=== PATIENT | female | born 1985 | race Caucasian/White ===

== ENCOUNTER 2017-08-19 08:19 | Emergency (ER) | payer SELFPAY ==
[~2017-08-19 08:19] MED LIST: CEPH500 PO; CEPH500C3 PO
[2017-08-19 08:21] VITALS: BP 165/84; PULSE 112; RESP 14; TEMP 98.4; O2SAT 99
[2017-08-19] MEDS ORDERED: TETANUS/DIPHTHERIA TOXOID ADULT 0.5 ML VIAL IM ONE (08:45)
[2017-08-19] MEDS ORDERED: SODIUM CHLOR 0.9% 1000 ML INJ 1,000 ML IV ONE (08:45)
[2017-08-19] MEDS ORDERED: KETOROLAC TROMETHAMINE 30 MG/ML (IVP) VIAL IVP ONE (08:45)
[2017-08-19] MEDS ORDERED: CLINDAMYCIN 600 MG/NS PREMIX 50 ML IV ONE (08:45)
[2017-08-19] MEDS ORDERED: CLINDAMYCIN INJ 600 MG in SODIUM CHLORIDE 0.9% INJ 100 ML IV ONE (08:45)
--- NOTE | 2017-08-19 08:48 | PD ---
HPI Chief Complaint: Skin Problem Time Seen by Provider: 08:28 Travel History International Travel<30 days: No Contact w/Intl Traveler<30days: No Traveled to known affect area: No History of Present Illness HPI The patient is a 31-year-old female who presents to the emergency department for swelling to the right arm with an abscess which is self draining. The patient does have a history of previous abscess, does have a history of IV drug abuse. The patient last injected the right forearm 1 week ago, now complains of a draining abscess over the volar aspect of the right forearm with significant swelling of the right forearm. She does complain of pain that is worse with movement, denies any numbness or tingling. She denies any fever, chills, or sweats. She denies any history of immunocompromising diseases or previous history of endocarditis or septic emboli. The symptoms are moderate, exacerbated after using IV drugs in the right forearm. She is right-hand dominant. Symptoms are moderate without any alleviating factors. The patient does not have a primary physician. PFSH Past Medical History Diminished Hearing: No Respiratory: Yes (PNUEMONIA) Immunizations Current: Yes ?: LMP: 06/12/18 : 0 Past Surgical History Tonsillectomy: Yes Social History Alcohol Use: Yes (OCCAISIIONAL) Tobacco Use: No Substance Use: Yes (IV DRUG USE DILAUDID) Allergies-Medications (Allergen,Severity, Reaction): Coded Allergies: cat dander (Unverified Allergy, Intermediate, Hives, 03/14/17) house dust (Unverified Allergy, Mild, Sneezing, 03/14/17) animal dander (Unverified Allergy, Unknown, UNKNOWN, 03/14/17) Reported Meds & Prescriptions Reported Meds & Active Scripts Active Keflex (Cephalexin Monohydrate) 500 Mg Cap 500 Mg PO Q6 Reported Keflex 500 mg Cap (Cephalexin Monohydrate) 500 Mg Cap 500 Mg PO Q6 Review of Systems Except as stated in HPI: all other systems reviewed are Neg General / Constitutional: No: Fever Cardiovascular: No: Chest Pain or Discomfort Respiratory: No: Shortness of Breath Gastrointestinal: No: Nausea, Vomiting, Abdominal Pain Musculoskeletal: Positive: Edema, Pain Neurologic: No: Paresthesia, Sensory Disturbance Psychiatric: Positive: Substance Abuse Physical Exam Narrative GENERAL: Awake, alert, pleasant 31-year-old female who appears her stated age and is in no acute respiratory distress. SKIN: Focused skin assessment warm/dry. HEAD: Atraumatic. Normocephalic. EYES: Pupils equal and round. No scleral icterus. No injection or drainage. ENT: No nasal bleeding or discharge. Mucous membranes pink and moist. NECK: Trachea midline. No JVD. CARDIOVASCULAR: Regular, tachycardic with a heart rate of 110. RESPIRATORY: No accessory muscle use. Clear to auscultation. Breath sounds equal bilaterally. GASTROINTESTINAL: Abdomen soft, non-tender, nondistended. MUSCULOSKELETAL: The right forearm is edematous and erythematous with calor when compared to left upper extremity. Positive right radial pulse. Large open draining wound of the volar aspect of mid right forearm. The wound measures approximately 5 cm x 2.5 cm, is draining purulent drainage. Erythema is noted from the volar aspect of the right wrist to the antecubital fossa. No significant right upper troponin lymphadenopathy or axillary lymphadenopathy noted. NEUROLOGICAL: Awake and alert. No obvious cranial nerve deficits. Motor grossly within normal limits. Normal speech. PSYCHIATRIC: Appropriate mood and affect; insight and judgment normal. Data Data Last Documented VS Vital Signs Date Time Temp Pulse Resp B/P (MAP) Pulse Ox O2 Delivery O2 Flow Rate FiO2 08/19/17 10:09 158/69 (98) 08/19/17 08:21 98.4 112 14 99 Orders Orders Complete Blood Count With Diff (08/19/17 08:38) Blood Culture (08/19/17 08:38) Wound Culture And Gram Stain (08/19/17 08:38) Iv Access Insert/Monitor (08/19/17 08:38) Ketorolac Inj (Toradol Inj) (08/19/17 08:45) Tetanus/Diphtheria Tox Adult (Tetanus/Di (08/19/17 08:45) Comprehensive Metabolic Panel (08/19/17 08:38) Lactic Acid (08/19/17 08:38) Sodium Chlor 0.9% 1000 Ml Inj (Ns 1000 M (08/19/17 08:45) Clindamycin 600 Mg/Ns Premix (Cleocin 60 (08/19/17 08:45) Labs Laboratory Tests Test 08/19/17 08:50 White Blood Count 9.1 TH/MM3 Red Blood Count 4.77 MIL/MM3 Hemoglobin 12.0 GM/DL Hematocrit 35.9 % Mean Corpuscular Volume 75.3 FL Mean Corpuscular Hemoglobin 25.1 PG Mean Corpuscular Hemoglobin Concent 33.4 % Red Cell Distribution Width 13.2 % Platelet Count 302 TH/MM3 Mean Platelet Volume 7.9 FL Neutrophils (%) (Auto) 73.8 % Lymphocytes (%) (Auto) 20.1 % Monocytes (%) (Auto) 5.6 % Eosinophils (%) (Auto) 0.2 % Basophils (%) (Auto) 0.3 % Neutrophils # (Auto) 6.8 TH/MM3 Lymphocytes # (Auto) 1.8 TH/MM3 Monocytes # (Auto) 0.5 TH/MM3 Eosinophils # (Auto) 0.0 TH/MM3 Basophils # (Auto) 0.0 TH/MM3 CBC Comment AUTO DIFF Differential Comment AUTO DIFF CONFIRMED Blood Urea Nitrogen 7 MG/DL Creatinine 0.71 MG/DL Random Glucose 108 MG/DL Total Protein 8.8 GM/DL Albumin 3.1 GM/DL Calcium Level 9.1 MG/DL Alkaline Phosphatase 96 U/L Aspartate Amino Transf (AST/SGOT) 22 U/L Alanine Aminotransferase (ALT/SGPT) 13 U/L Total Bilirubin 2.2 MG/DL Sodium Level 131 MEQ/L Potassium Level 4.5 MEQ/L Chloride Level 98 MEQ/L Carbon Dioxide Level 25.2 MEQ/L Anion Gap 8 MEQ/L Estimat Glomerular Filtration Rate 97 ML/MIN Lactic Acid Level 0.7 mmol/L MDM Medical Decision Making Medical Screen Exam Complete: Yes Emergency Medical Condition: Yes Medical Record Reviewed: Yes Interpretation(s) Laboratory Tests Test 08/19/17 08:50 White Blood Count 9.1 TH/MM3 Red Blood Count 4.77 MIL/MM3 Hemoglobin 12.0 GM/DL Hematocrit 35.9 % Mean Corpuscular Volume 75.3 FL Mean Corpuscular Hemoglobin 25.1 PG Mean Corpuscular Hemoglobin Concent 33.4 % Red Cell Distribution Width 13.2 % Platelet Count 302 TH/MM3 Mean Platelet Volume 7.9 FL Neutrophils (%) (Auto) 73.8 % Lymphocytes (%) (Auto) 20.1 % Monocytes (%) (Auto) 5.6 % Eosinophils (%) (Auto) 0.2 % Basophils (%) (Auto) 0.3 % Neutrophils # (Auto) 6.8 TH/MM3 Lymphocytes # (Auto) 1.8 TH/MM3 Monocytes # (Auto) 0.5 TH/MM3 Eosinophils # (Auto) 0.0 TH/MM3 Basophils # (Auto) 0.0 TH/MM3 CBC Comment AUTO DIFF Differential Comment AUTO DIFF CONFIRMED Blood Urea Nitrogen 7 MG/DL Creatinine 0.71 MG/DL Random Glucose 108 MG/DL Total Protein 8.8 GM/DL Albumin 3.1 GM/DL Calcium Level 9.1 MG/DL Alkaline Phosphatase 96 U/L Aspartate Amino Transf (AST/SGOT) 22 U/L Alanine Aminotransferase (ALT/SGPT) 13 U/L Total Bilirubin 2.2 MG/DL Sodium Level 131 MEQ/L Potassium Level 4.5 MEQ/L Chloride Level 98 MEQ/L Carbon Dioxide Level 25.2 MEQ/L Anion Gap 8 MEQ/L Estimat Glomerular Filtration Rate 97 ML/MIN Lactic Acid Level 0.7 mmol/L Differential Diagnosis Differential diagnosis includes IV drug abuse, abscess, infected wound, cellulitis, sepsis, DrGaviota mueller, septicemia, endocarditis. Narrative Course IV was established, labs are drawn and sent, and the patient was placed on cardiac telemetry monitoring and continuous pulse oximetry monitoring. Blood culture, lactic acid, and wound culture were sent to lab. The patient was administered clindamycin 600 mg intravenously, Toradol 30 mg intravenously, and 1 L of IV fluids. The patient's white count is normal. Lactic acid 0.7. The patient is advised to return in 48 hours for reevaluation of blood cultures, culture results, and to evaluate if the erythema and swelling has improved. The arm was marked with a surgical marking pen. I will write the patient pain medication, her mother is at bedside, will dispense the pain medications to the patient so there is no chance of abuse. Diagnosis Primary Impression: Abscess of right forearm Patient Instructions: General Instructions Additional Instructions: Medications as directed. Return in 48-72 hours for reevaluation of wound. Return sooner symptoms worsen or progress. Elevate, apply warm compresses abscess. Med/Other Pt SpecificInfo: Prescription(s) given Scripts Hydrocodone-Acetaminophen ([place]) 5 Mg-325 Mg Tab 1 TAB PO Q6H Y for PAIN, #15 TAB 0 Refills Prov: Curly Robertson MD 08/19/17 Clindamycin (Cleocin) 150 Mg Cap 150 MG PO Q6H for Infection for 10 Days, #40 CAP 0 Refills Prov: Curly Robertson MD 08/19/17 Sulfamethoxazole-Trimethoprim (Bactrim DS) 800-160 Mg Tab 1 TAB PO BID for Infection, #20 TAB 0 Refills Prov: Curly Robertson MD 08/19/17 Disposition: 01 DISCHARGE HOME Condition: Stable Curly Robertson MD Aug 19, 2017 08:48
[2017-08-19 09:34] LABS: AUTOMATED NEUTROPHIL # 6.8 TH/MM3 (1.8-7.7); BASOPHIL % 0.3 % (0.0-2.0); EOSINOPHIL % 0.2 % (0.0-4.0); HEMATOCRIT 35.9 % (35.0-46.0); LYMPH % 20.1 % (9.0-44.0); LYMPHOCYTE # 1.8 TH/MM3 (1.0-4.8); MEAN CELL VOLUME 75.3 FL (80.0-100.0); MEAN CORPUSCULAR HEMOGLOBIN 25.1 PG (27.0-34.0); MEAN CORPUSCULAR HGB CONC 33.4 % (32.0-36.0); MEAN PLATELET VOLUME 7.9 FL (7.0-11.0); MONO % 5.6 % (0.0-8.0); MONOCYTE # 0.5 TH/MM3 (0-0.9); NEUT % 73.8 % (16.0-70.0); PLATELET COUNT 302 TH/MM3 (150-450); RED BLOOD COUNT 4.77 MIL/MM3 (4.00-5.30); RED CELL DISTRIBUTION WIDTH 13.2 % (11.6-17.2); WHITE BLOOD COUNT 9.1 TH/MM3 (4.0-11.0)
[2017-08-19 09:52] LABS: ALKALINE PHOSPHATASE 96 U/L (45-117); TOTAL BILIRUBIN ADULT 2.2 MG/DL (0.2-1.0); TOTAL PROTEIN 8.8 GM/DL (6.4-8.2)
[2017-08-19 09:53] LABS: ALBUMIN 3.1 GM/DL (3.4-5.0); ALT (GPT) 13 U/L (10-53); AST (GOT) 22 U/L (15-37); BICARBONATE 25.2 MEQ/L (21.0-32.0); BLOOD UREA NITROGEN 7 MG/DL (7-18); CALCIUM 9.1 MG/DL (8.5-10.1); CHLORIDE 98 MEQ/L (98-107); CREATININE 0.71 MG/DL (0.50-1.00); GLOMERULAR FILTRATION RATE 97 ML/MIN (>89); GLUCOSE,RANDOM 108 MG/DL (74-106); SODIUM (NA) 131 MEQ/L (136-145)
[2017-08-19 10:09] VITALS: BP 158/69
[2017-08-19] MEDS ORDERED: CLIN150 PO (10:27)
[2017-08-19] MEDS ORDERED: BACT800T5 PO (10:27)
[2017-08-19] MEDS ORDERED: NORC5TAB PO (10:27)
[2017-08-19 11:24] VITALS: BP 143/70
== END 2017-08-19 11:25 | disposition home or self-care (01) ==
LOC: NEPC 08:19
DX: L02.413 Cutaneous abscess of right upper limb (principal); B96.89 Other specified bacterial agents as the cause of diseases classified elsewhere; F11.10 Opioid abuse, uncomplicated
CPT/HCPCS: 80053; 83605; 85025; 87040; 87070; 87077; 87186; 90471; 90714; 96365; 96375; 99284; J1885; J7030; 87205

== ENCOUNTER 2017-08-21 23:24 | Emergency (ER) | payer SELFPAY | END 2017-08-22 01:29 | disposition left against medical advice (07) | LOC: NED 23:24 | DX: Z03.89 Encounter for observation for other suspected diseases and conditions ruled out (principal) | CPT/HCPCS: 99281 ==

== ENCOUNTER 2017-08-23 17:29 | Inpatient (IN) | payer SELFPAY ==
[~2017-08-23] VITALS: Ht 165.1 cm; Wt 98.1 kg
[~2017-08-23 17:29] MED LIST changes: +BACT800T5 PO; +CLIN150 PO; +NORC5TAB PO
[2017-08-23 17:33] VITALS: BP 114/75; PULSE 112; RESP 14; TEMP 98.9; O2SAT 99
--- NOTE | 2017-08-23 18:06 | PD ---
HPI Chief Complaint: Skin Problem Time Seen by Provider: 18:00 Travel History International Travel<30 days: No Contact w/Intl Traveler<30days: No Traveled to known affect area: No History of Present Illness HPI The patient is a 31-year-old female who presents to the emergency department for pain and swelling of the right upper extremity. The patient was seen in the emergency department approximately 4 days ago for an abscess to the right forearm after using IV drugs. The patient states the arm was marked with a surgical marking pen at that time and the patient was placed on clindamycin and Bactrim. The patient states the redness around that abscess improved, however, she now has redness surrounding the elbow and right humerus. She does state the elbow is erythematous, warm to touch, and the redness has spread proximal to the right humerus. The patient states she had a fever 102 nights ago, however, has no fever today. She does have a history of IV drug abuse, but has not used in the last several days. Symptoms are moderate, possibly exacerbated by recent infection to the right forearm, and no current alleviating factors. She does state the abscess on the right forearm and redness around that area has improved, however, the right elbow and right humerus area has worsened. The patient is right-hand dominant PFSH Past Medical History Diminished Hearing: No Hepatitis: Yes (C) Musculoskeletal: Yes (tendoitis knees, herniated disk in back) Respiratory: Yes (PNUEMONIA) Immunizations Current: Yes ?: Not LMP: 08/22/2017 : 0 Past Surgical History Tonsillectomy: Yes Social History Alcohol Use: Yes Tobacco Use: No Substance Use: Yes (IV DRUG USE DILAUDID) Allergies-Medications (Allergen,Severity, Reaction): Coded Allergies: cat dander (Unverified Allergy, Intermediate, Hives, 08/22/17) house dust (Unverified Allergy, Mild, Sneezing, 08/22/17) animal dander (Unverified Allergy, Unknown, UNKNOWN, 08/22/17) Reported Meds & Prescriptions Reported Meds & Active Scripts Active [place] (Hydrocodone-Acetaminophen) 5 Mg-325 Mg Tab 1 Tab PO Q6H PRN Cleocin (Clindamycin HCl) 150 Mg Cap 150 Mg PO Q6H 10 Days Bactrim DS (Sulfamethoxazole-Trimethoprim) 800-160 Mg Tab 1 Tab PO BID Keflex (Cephalexin Monohydrate) 500 Mg Cap 500 Mg PO Q6 Reported Keflex 500 mg Cap (Cephalexin Monohydrate) 500 Mg Cap 500 Mg PO Q6 Review of Systems Except as stated in HPI: all other systems reviewed are Neg General / Constitutional: Positive: Fever (fever 102 nights ago) Cardiovascular: No: Chest Pain or Discomfort Respiratory: No: Shortness of Breath Gastrointestinal: No: Nausea, Vomiting, Abdominal Pain Musculoskeletal: Positive: Edema, Pain Skin: Positive Other (as noted in the history of present illness) Psychiatric: Positive: Substance Abuse (history of IV drug abuse) Physical Exam Narrative GENERAL: Awake, alert, pleasant 31-year-old female who appears her stated age and is in no acute respiratory distress. SKIN: Focused skin assessment warm/dry. Tract cox noted on the upper extremities bilaterally. HEAD: Atraumatic. Normocephalic. EYES: Pupils equal and round. No scleral icterus. No injection or drainage. ENT: No nasal bleeding or discharge. Mucous membranes pink and moist. NECK: Trachea midline. No JVD. CARDIOVASCULAR: Regular, tachycardic with a heart rate of 105. RESPIRATORY: No accessory muscle use. Clear to auscultation. Breath sounds equal bilaterally. GASTROINTESTINAL: Abdomen soft, non-tender, nondistended. Hepatic and splenic margins not palpable. MUSCULOSKELETAL: The right upper extremity does have an open area over the volar aspect of the right forearm which appears to be healing with no surrounding erythema. However, the patient now has an area of bright erythema over the ulnar aspect of the left elbow with erythema spreading up to the right axilla. The area is tender to palpation. She is able flex and extend the elbow as well as supinate and pronate, no drainage. Positive right radial pulse. NEUROLOGICAL: Awake and alert. No obvious cranial nerve deficits. Motor grossly within normal limits. Normal speech. PSYCHIATRIC: Appropriate mood and affect; insight and judgment normal. Data Data Last Documented VS Vital Signs Date Time Temp Pulse Resp B/P (MAP) Pulse Ox O2 Delivery O2 Flow Rate FiO2 08/23/17 17:33 98.9 112 14 114/75 (88) 99 Orders Orders Blood Culture (08/23/17 18:01) Complete Blood Count With Diff (08/23/17 18:01) Comprehensive Metabolic Panel (08/23/17 18:01) Lactic Acid (08/23/17 18:01) Ceftriaxone Inj (Rocephin Inj) (08/23/17 18:15) Sodium Chlor 0.9% 1000 Ml Inj (Ns 1000 M (08/23/17 18:15) Us Arm Venous Doppler (08/23/17 ) Admit Order (Ed Use Only) (08/23/17 18:33) MDM Medical Decision Making Medical Screen Exam Complete: Yes Emergency Medical Condition: Yes Medical Record Reviewed: Yes Differential Diagnosis Differential diagnosis includes cellulitis, infected wound, abscess, DVT, thrombophlebitis, failed outpatient therapy. Narrative Course IV was established, labs are drawn and sent, and the patient was placed on cardiac telemetry monitoring and continuous pulse oximetry monitoring. I evaluated the patient's right forearm, and has significantly improved, however, now the patient has erythema around the right elbow with erythema extending up into the right axilla. There is calor over the affected area. She is able flex and extend the elbow as well as supinate and pronate, I do not believe this is a septic joint. I did review the patient's culture, grew Serratia itches resistant to doxycycline but sensitive to all other antibiotics listed. The patient was on Bactrim which it was sensitive to, she has failed outpatient therapy. It is sensitive to Rocephin, therefore, the patient received Rocephin. An ultrasound of the right upper extremity was ordered to rule out thrombophlebitis and or DVT. A call was placed to the on-call medical staff for admission. Sepsis Criteria SIRS Criteria (2 or more): Heart rate over 90 Physician Communication Physician Communication A call was placed to the on-call medical staff for admission. I discussed the patient with Dr. Mondragon who agrees with admission. Diagnosis Primary Impression: Cellulitis of right upper extremity Admitting Information Admitting Physician Requests: Admit Condition: Stable Curly Robertson MD Aug 23, 2017 18:05
[2017-08-23] MEDS ORDERED: SODIUM CHLOR 0.9% 1000 ML INJ 1,000 ML IV ONE (18:15)
[2017-08-23] MEDS ORDERED: cefTRIAXone INJ 1,000 MG in SODIUM CHLORIDE 0.9% INJ 100 ML IV ONE (18:15)
[2017-08-23] MEDS ORDERED: NALOXONE HCL 0.4 MG/ML AMP IV PUSH PRN (18:45)
[2017-08-23] MEDS ORDERED: SODIUM CHLORIDE 0.9% FLUSH 10 ML FLUSH IV FLUSH PRN (18:45)
[2017-08-23] MEDS ORDERED: Vancomycin Consult Pharmacy 1 EA OTHER SCH (18:45)
--- NOTE | 2017-08-23 19:48 | RADRPT ---
EXAM DATE/TIME: 08/23/2017 19:05 [facility] COMPARISON: No previous studies available for comparison. INDICATIONS : Right arm swelling. MEDICAL HISTORY : Hepatitis C. Pneumonia. IV drug use. SURGICAL HISTORY : Tonsillectomy. ENCOUNTER: Initial ACUITY: 4 - 6 days PAIN SCORE: 3/10 LOCATION: Right arm. FINDINGS: Examination positive for occlusive thrombus in the proximal to distal brachial vein. Subclavian, axil barrie, basilic and cephalic vein are patent. CONCLUSION: 1. Positive for occlusive deep venous thrombosis in the brachial vein on the right. Chin Greco MD on August 23, 2017 at 19:46 Board Certified Radiologist. This report was verified electronically.
--- NOTE | 2017-08-23 20:23 | HHI.HP ---
[facility] No Primary Care Physician Admission Diagnosis cellulitis/infected wound right forearm failed outpatient therapy Diagnoses: Travel History International Travel<30 Days: No Contact w/Intl Traveler <30 Da: No Traveled to Known Affected Are: No History of Present Illness 31-year-old female with past medical history significant for IV drug abuse presents to the emergency department for evaluation of right upper extremity cellulitis. The patient was seen in the emergency department on 08/19/17 for evaluation of a right forearm abscess which was self draining. She also had a developing cellulitis surrounding the right forearm. Wound cultures were taken and the patient was discharged to home with Bactrim and clindamycin. Wound culture positive for Serratia, sensitive to Bactrim. Despite compliance with her antibiotics the patient's left elbow cellulitis has spread almost to the axillary region. The area is warm to the touch with possible fluctuance. The patient is able to fully move her arm with minimal discomfort. She denies fever /chills. Review of Systems Denies fever or chills Denies blurry vision, otorrhea, rhinorrhea Denies sore throat and cough No chest pain, palpitations No shortness of breath or wheezing No abdominal pain Denies constipation/diarrhea/nausea/vomiting Denies muscle pain Denies focal weakness No rashes Past Family Social History Past Medical History IV drug abuse Hepatitis C Scoliosis Multiple bulging disks Past Surgical History Tonsillectomy Reported Medications Reported Meds & Active Scripts Active [place] (Hydrocodone-Acetaminophen) 5 Mg-325 Mg Tab 1 Tab PO Q6H PRN Cleocin (Clindamycin HCl) 150 Mg Cap 150 Mg PO Q6H 10 Days Bactrim DS (Sulfamethoxazole-Trimethoprim) 800-160 Mg Tab 1 Tab PO BID Keflex (Cephalexin Monohydrate) 500 Mg Cap 500 Mg PO Q6 Reported Keflex 500 mg Cap (Cephalexin Monohydrate) 500 Mg Cap 500 Mg PO Q6 Allergies: Coded Allergies: cat dander (Unverified Allergy, Intermediate, Hives, 08/22/17) house dust (Unverified Allergy, Mild, Sneezing, 08/22/17) animal dander (Unverified Allergy, Unknown, UNKNOWN, 08/22/17) Family History Father with CAD Social History Patient reports IV drug abuse with last injection Monday. She uses Dilaudid. She also reports she takes Suboxone orally every day. Denies alcohol and tobacco. Physical Exam Vital Signs Vital Signs Date Time Temp Pulse Resp B/P (MAP) Pulse Ox O2 Delivery O2 Flow Rate FiO2 08/23/17 17:33 98.9 112 14 114/75 (88) 99 Physical Exam GENERAL: female sitting up in bed SKIN: Right upper extremity with an open area that measures approximately 3 x 3 cm healing without surrounding erythema. Erythema and edema surrounding left elbow extending towards the axillary region on the posterior aspect of the right upper extremity. Possible fluctuance. HEAD: Atraumatic. Normocephalic. No temporal or scalp tenderness. EYES: Pupils equal round and reactive. Extraocular motions intact. No scleral icterus. No injection or drainage. ENT: Nose without bleeding, purulent drainage or septal hematoma. Throat without erythema, tonsillar hypertrophy or exudate. Uvula midline. Airway patent. NECK: Trachea midline. No JVD or lymphadenopathy. Supple, nontender, no meningeal signs. CARDIOVASCULAR: Regular rate and rhythm without murmurs, gallops, or rubs. RESPIRATORY: Clear to auscultation. Breath sounds equal bilaterally. No wheezes , rales, or rhonchi. GASTROINTESTINAL: Abdomen soft, non-tender, nondistended. No hepato-splenomegaly , or palpable masses. No guarding. MUSCULOSKELETAL: Extremities without clubbing, cyanosis, or edema. No joint tenderness, effusion, or edema noted. No calf tenderness. NEUROLOGICAL: Awake and alert. Cranial nerves II through XII intact. Motor and sensory grossly within normal limits. Five out of 5 muscle strength in all muscle groups. Normal speech. Laboratory Laboratory Tests Test 08/23/17 19:05 Date/Time Source Procedure Growth Status 08/23/17 19:05 Blood Peripheral Aerobic Blood Culture Pending Received 08/23/17 19:05 Blood Peripheral Anaerobic Blood Culture Pending Received Caprini VTE Risk Assessment Caprini VTE Risk Assessment: No/Low Risk (score <= 1) Caprini Risk Assessment Model Point Value = 1 Point Value = 2 Point Value = 3 Point Value = 5 Age 41-60 Minor surgery BMI > 25 kg/m2 Swollen legs Varicose veins or History of unexplained or recurrent spontaneous Oral contraceptives or hormone replacement Sepsis (< 1 month) Serious lung disease, including pneumonia (< 1 month) Abnormal pulmonary function Acute myocardial infarction Congestive heart failure (< 1 month) History of inflammatory bowel disease Medical patient at bed rest Age 61-74 Arthroscopic surgery Major open surgery (> 45 min) Laparoscopic surgery (> 45 min) Malignancy Confined to bed (> 72 hours) Immobilizing plaster cast Central venous access Age >= 75 History of VTE Family history of VTE Factor V Leiden Prothrombin [id number] Lupus anticoagulant Anticardiolipin antibodies Elevated serum homocysteine Heparin-induced thrombocytopenia Other congenital or acquired thrombophilia Stroke (< 1 month) Elective arthroplasty Hip, pelvis, or leg fracture Acute spinal cord injury (< 1 month) Prophylaxis Regimen Total Risk Factor Score Risk Level Prophylaxis Regimen 0-1 Low Early ambulation 2 Moderate Order ONE of the following: *Sequential Compression Device (SCD) *Heparin 5000 units SQ BID 3-4 Higher Order ONE of the following medications: *Heparin 5000 units SQ TID *Enoxaparin/Lovenox 40 mg SQ daily (WT < 150 kg, CrCl > 30 mL/min) *Enoxaparin/Lovenox 30 mg SQ daily (WT < 150 kg, CrCl > 10-29 mL/min) *Enoxaparin/Lovenox 30 mg SQ BID (WT < 150 kg, CrCl > 30 mL/min) AND/OR *Sequential Compression Device (SCD) 5 or more Highest Order ONE of the following medications: *Heparin 5000 units SQ TID (Preferred with Epidurals) *Enoxaparin/Lovenox 40 mg SQ daily (WT < 150 kg, CrCl > 30 mL/min) *Enoxaparin/Lovenox 30 mg SQ daily (WT < 150 kg, CrCl > 10-29 mL/min) *Enoxaparin/Lovenox 30 mg SQ BID (WT < 150 kg, CrCl > 30 mL/min) AND *Sequential Compression Device (SCD) Assessment and Plan Assessment and Plan Assessment/plan: 1. Right upper extremity cellulitis, failed outpatient treatment Wound culture from 08/19 growing Serratia, blood cultures from 120 no growth 4 days Repeat blood cultures pending Vancomycin/Zosyn CBC, lactic acid pending Dilaudid for pain Monitor for signs of sepsis 2. IV drug abuse Cessation counseling provided 3. Hepatitis C Will need outpatient follow-up Physician Certification 2 Midnight Certification Type: Admission for Inpatient Services Order for Inpatient Services The services are ordered in accordance with Medicare regulations or non- Medicare payer requirements, as applicable. In the case of services not specified as inpatient-only, they are appropriately provided as inpatient services in accordance with the 2-midnight benchmark. Estimated LOS (days): 2 2 days is the estimated time the patient will need to remain in the hospital, assuming treatment plan goals are met and no additional complications. Post-Hospital Plan: Not yet determined Christine De La Rosa MD Aug 23, 2017 20:23
[2017-08-23 20:29] LABS: ALT (GPT) 10 U/L (10-53)
[2017-08-23 20:31] LABS: ALKALINE PHOSPHATASE 96 U/L (45-117); AST (GOT) 26 U/L (15-37); BICARBONATE 24.6 MEQ/L (21.0-32.0); BLOOD UREA NITROGEN 7 MG/DL (7-18); CALCIUM 9.1 MG/DL (8.5-10.1); CHLORIDE 96 MEQ/L (98-107); CREATININE 1.04 MG/DL (0.50-1.00); GLOMERULAR FILTRATION RATE 62 ML/MIN (>89); GLUCOSE,RANDOM 81 MG/DL (74-106); SODIUM (NA) 128 MEQ/L (136-145); TOTAL PROTEIN 9.1 GM/DL (6.4-8.2)
[2017-08-23 20:49] VITALS: BP 117/64; PULSE 106; RESP 20; TEMP 99.9; O2SAT 95
[2017-08-23] MEDS: SODIUM CHLORIDE 0.9% FLUSH 10 ML FLUSH IV FLUSH SCH (21:00)
[2017-08-23] MEDS: SODIUM CHLOR 0.9% 1000 ML INJ 1,000 ML IV SCH (22:16)
[2017-08-23] MEDS: PIPERACIL-TAZO 4.5 GM PREMIX 100 ML IV SCH (22:17)
[2017-08-23] MEDS: HYDROmorphone HCL PF 2 MG/ML VIAL IV PUSH PRN (22:21)
--- NOTE | 2017-08-23 23:28 | RADRPT ---
EXAM DATE/TIME: 08/23/2017 22:28 [facility] COMPARISON: No previous studies available for comparison. INDICATIONS : Right arm swelling and pain. MEDICAL HISTORY : Hepatitis C. Pneumonia. IV drug use. SURGICAL HISTORY : Tonsillectomy. ENCOUNTER: Initial ACUITY: 1 week PAIN SCORE: 9/10 LOCATION: Right arm. AREA EVALUATED: Right elbow and posterior arm. FINDINGS: Real-time ultrasound examination was targeted to the soft tissues of the posterior elbow and demonstr ate a large subcutaneous fluid collection which contains multiple septations, measuring 11.1 x 5.5 x 2.4 cm. On color Doppler, there is increased flow in the subcutaneous fat anterior to the fluid mikhail ection and prominent flow in one of the septa. CONCLUSION: Large subcutaneous fluid collection in the posterior elbow. Kaden Jain MD on August 23, 2017 at 23:25 Board Certified Radiologist. This report was verified electronically.
[2017-08-23] MEDS: VANCOMYCIN 1 GM/200 ML PREMIX IV SCH (23:42)
[2017-08-23 23:50] VITALS: BP 110/68; PULSE 70; RESP 18; TEMP 98.6
[2017-08-24] MEDS: PIPERACIL-TAZO 4.5 GM PREMIX 100 ML IV SCH ×4 (04:10→22:51)
[2017-08-24] MEDS: HYDROmorphone HCL PF 2 MG/ML VIAL IV PUSH PRN ×5 (04:13→23:16)
[2017-08-24 04:31] VITALS: BP 102/52; PULSE 95; RESP 18; TEMP 100.3; O2SAT 94
[2017-08-24] MEDS: VANCOMYCIN 1 GM/200 ML PREMIX IV SCH ×3 (05:58→22:51)
[2017-08-24] MEDS: HEPARIN-D5W 25,000 U/250 ML 250 ML IV PRN ×3 (06:00→22:49)
[2017-08-24 08:14] VITALS: BP 115/53; PULSE 80; RESP 18; TEMP 99.7; O2SAT 94
[2017-08-24 08:27] LABS: AUTOMATED NEUTROPHIL # 3.8 TH/MM3 (1.8-7.7); BASOPHIL % 0.5 % (0.0-2.0); EOSINOPHIL % 0.1 % (0.0-4.0); HEMATOCRIT 33.1 % (35.0-46.0); HEMOGLOBIN 10.9 GM/DL (11.6-15.3); LYMPH % 20.3 % (9.0-44.0); LYMPHOCYTE # 1.1 TH/MM3 (1.0-4.8); MEAN CELL VOLUME 73.5 FL (80.0-100.0); MEAN CORPUSCULAR HEMOGLOBIN 24.2 PG (27.0-34.0); MEAN CORPUSCULAR HGB CONC 32.9 % (32.0-36.0); MEAN PLATELET VOLUME 7.2 FL (7.0-11.0); MONOCYTE # 0.5 TH/MM3 (0-0.9); NEUT % 70.1 % (16.0-70.0); PLATELET COUNT 283 TH/MM3 (150-450); RED CELL DISTRIBUTION WIDTH 13.9 % (11.6-17.2); WHITE BLOOD COUNT 5.4 TH/MM3 (4.0-11.0)
[2017-08-24 08:36] LABS: INTERNATIONAL NORMALIZED RATIO 1.1 RATIO; PROTHROMBIN TIME - PATIENT 11.1 SEC (9.8-11.6)
[2017-08-24 08:51] LABS: BICARBONATE 23.8 MEQ/L (21.0-32.0); CALCIUM 8.3 MG/DL (8.5-10.1); CREATININE 0.96 MG/DL (0.50-1.00)
[2017-08-24] MEDS: SODIUM CHLOR 0.9% 1000 ML INJ 1,000 ML IV SCH ×2 (08:58→18:31)
[2017-08-24] MEDS: SODIUM CHLORIDE 0.9% FLUSH 10 ML FLUSH IV FLUSH SCH ×2 (09:00→23:14)
[2017-08-24] MEDS ORDERED: INFLUENZA VIRUS VACCINE (QUADRIVALENT) 0.5 ML SYR IM ONE (10:00)
[2017-08-24] MEDS ORDERED: PNEUMOCOCCAL POLYVALENT INJ 25 MCG/0.5 ML SYR IM ONE (10:00)
--- NOTE | 2017-08-24 10:55 | HHI.PR ---
Subjective Remarks Follow-up right upper extremity cellulitis/abscess. The patient reports that the swelling and pain in the right arm are unchanged. No drainage overnight. Objective Vitals Vital Signs Date Time Temp Pulse Resp B/P (MAP) Pulse Ox O2 Delivery O2 Flow Rate FiO2 08/24/17 08:14 99.7 80 18 115/53 (73) 94 08/24/17 04:45 18 08/24/17 04:31 100.3 95 18 102/52 (69) 94 08/23/17 23:50 98.6 70 18 110/68 (82) 08/23/17 20:49 99.9 106 20 117/64 (81) 95 08/23/17 17:33 98.9 112 14 114/75 (88) 99 I/O 08/23/17 08/23/17 08/23/17 08/24/17 08/24/17 08/24/17 07:00 15:00 23:00 07:00 15:00 23:00 Intake Total 1000 ml 200 ml Balance 1000 ml 200 ml Intake Oral 200 ml IV Total 1000 ml Result Diagram: 08/24/17 0802 08/24/17 0802 Imaging Last Impressions Upper Extremity Ultrasound 08/23/17 0000 Signed Impressions: Service Date/Time: Wednesday, August 23, 2017 22:28 - CONCLUSION: Large subcutaneous fluid collection in the posterior elbow. Kaden Jain MD Objective Remarks General: No acute distress. Heart: Regular rate and rhythm. No murmur. Lungs: Clear to auscultation bilaterally. No wheezes, rales, or rhonchi. Breathing is nonlabored. Abdomen: Soft, nontender, nondistended. Extremities: No lower extremity edema. Psych: Alert and oriented. Skin: There is significant swelling and erythema surrounding the right elbow. The area is tender to palpation. There is fluctuance noted posteriorly. Procedures None Urinary Catheter: No Vascular Central Line Catheter: No A/P Assessment and Plan 1. Right upper extremity cellulitis/abscess: Failed outpatient therapy. Wound culture from 08/19/17 growing Serratia. Cultures are negative so far. Repeat blood cultures are pending. Continue vancomycin, Zosyn. Continue pain control. 2. IV drug abuse: Patient was counseled. 3. Hepatitis C: Follow-up as outpatient. 4. DVT, right upper extremity: Continue heparin drip. Stoverink,Pablo D. MD Aug 24, 2017 10:55
[2017-08-24 11:42] VITALS: BP 103/53; PULSE 80; RESP 20; TEMP 98.3; O2SAT 94
[2017-08-24 16:02] VITALS: BP 104/58; PULSE 83; RESP 20; TEMP 99.7; O2SAT 98
[2017-08-24] MEDS ORDERED: GADODIAMIDE PF 287 MG/ML 20 ML VIAL (for RAD MRI) IV PUSH ONE (17:38)
--- NOTE | 2017-08-24 18:07 | RADRPT ---
EXAM DATE/TIME: 08/24/2017 17:02 [place] COMPARISON: No previous studies available for comparison. INDICATIONS : Abscess. CONTRAST: 22 cc Omniscan (gadodiamide) IV MEDICAL HISTORY : Hepatitis C. IV Drug abuse. SURGICAL HISTORY : Tonsillectomy. Back surgery. ENCOUNTER: Initial ACUITY: 2 day PAIN SCORE: 4/10 LOCATION: Right elbow. TECHNIQUE: Multiplanar, multisequence MRI examination was performed without contrast and after the intravenous a dministration of gadolinium. FINDINGS: Large, heterogeneous and indurated appearing fluid collection is seen in the olecranon bursa, measure s approximately 2.7 cm in maximal thickness, 5.3 cm transverse and 13.9 cm proximal to distal. This m ay be hemorrhagic. An infected olecranon bursitis could appear similar. Deep soft tissues are within normal limits. There is no evidence of osteomyelitis or other acute bony abnormality. CONCLUSION: Large olecranon bursitis. No osteomyelitis. Daniel Light MD on August 24, 2017 at 18:01 Board Certified Radiologist. This report was verified electronically.
[2017-08-24] MEDS ORDERED: PHARMACY ORDERED LAB ONE (20:45)
[2017-08-24 20:49] VITALS: BP 95/54; PULSE 86; RESP 16; TEMP 100.5; O2SAT 97
[2017-08-24 23:33] VITALS: BP 108/66; PULSE 95; RESP 16; TEMP 99.3; O2SAT 98
[2017-08-25] VITALS (8 sets, daily range): BP systolic 93–130; BP diastolic 54–68; PULSE 69–84; RESP 17–18; TEMP 97.3–98.7; O2SAT 93–99
[2017-08-25] MEDS: SODIUM CHLOR 0.9% 1000 ML INJ 1,000 ML IV SCH ×3 (01:00→21:00)
[2017-08-25] MEDS: PIPERACIL-TAZO 4.5 GM PREMIX 100 ML IV SCH (03:24)
[2017-08-25] MEDS: HYDROmorphone HCL PF 2 MG/ML VIAL IV PUSH PRN ×5 (03:25→23:29)
[2017-08-25] MEDS: VANCOMYCIN 1 GM/200 ML PREMIX IV SCH (06:46)
[2017-08-25 07:24] LABS: AUTOMATED NEUTROPHIL # 2.9 TH/MM3 (1.8-7.7); BASOPHIL % 0.3 % (0.0-2.0); EOSINOPHIL % 0.4 % (0.0-4.0); HEMATOCRIT 28.5 % (35.0-46.0); HEMOGLOBIN 9.5 GM/DL (11.6-15.3); LYMPH % 30.4 % (9.0-44.0); LYMPHOCYTE # 1.4 TH/MM3 (1.0-4.8); MEAN CORPUSCULAR HEMOGLOBIN 24.6 PG (27.0-34.0); MEAN CORPUSCULAR HGB CONC 33.3 % (32.0-36.0); MEAN PLATELET VOLUME 7.8 FL (7.0-11.0); MONO % 6.8 % (0.0-8.0); MONOCYTE # 0.3 TH/MM3 (0-0.9); NEUT % 62.1 % (16.0-70.0); PLATELET COUNT 267 TH/MM3 (150-450); RED BLOOD COUNT 3.85 MIL/MM3 (4.00-5.30); RED CELL DISTRIBUTION WIDTH 13.7 % (11.6-17.2); WHITE BLOOD COUNT 4.6 TH/MM3 (4.0-11.0)
[2017-08-25 07:37] LABS: BICARBONATE 25.5 MEQ/L (21.0-32.0); CALCIUM 7.9 MG/DL (8.5-10.1); CREATININE 0.78 MG/DL (0.50-1.00)
--- NOTE | 2017-08-25 08:54 | HHI.PR ---
Subjective Remarks Follow up right elbow infection. Patient scheduled for surgery today. The patient is still reporting pain in the right elbow. No other complaints at this time. Objective Vitals Vital Signs Date Time Temp Pulse Resp B/P (MAP) Pulse Ox O2 Delivery O2 Flow Rate FiO2 08/25/17 07:12 97.3 78 18 105/55 (72) 98 08/25/17 05:29 18 08/25/17 03:11 98.7 82 17 93/54 (67) 99 08/24/17 23:33 99.3 95 16 108/66 (80) 98 08/24/17 20:49 100.5 86 16 95/54 (68) 97 08/24/17 16:02 99.7 83 20 104/58 (73) 98 08/24/17 11:42 98.3 80 20 103/53 (70) 94 I/O 08/24/17 08/24/17 08/24/17 08/25/17 08/25/17 08/25/17 07:00 15:00 23:00 07:00 15:00 23:00 Intake Total 500 ml 1100 ml Balance 500 ml 1100 ml Intake Oral 200 ml IV Total 300 ml 1100 ml Result Diagram: 08/25/17 0630 08/25/17 0630 Imaging Last Impressions Elbow MRI 08/24/17 0000 Signed Impressions: Service Date/Time: July 17:02 - CONCLUSION: Large olecranon bursitis. No osteomyelitis. Daniel Light MD Upper Extremity Ultrasound 08/23/17 0000 Signed Impressions: Service Date/Time: Wednesday, August 23, 2017 22:28 - CONCLUSION: Large subcutaneous fluid collection in the posterior elbow. Kaden Jain MD Objective Remarks General: No acute distress. Heart: Regular rate and rhythm. No murmur. Lungs: Clear to auscultation bilaterally. No wheezes, rales, or rhonchi. Breathing is nonlabored. Abdomen: Soft, nontender, nondistended. Extremities: No lower extremity edema. Psych: Alert and oriented. Skin: There is significant swelling and erythema surrounding the right elbow. The area is tender to palpation. There is fluctuance noted posteriorly. Erythema slightly improved. Procedures None Urinary Catheter: No Vascular Central Line Catheter: No A/P Assessment and Plan 1. Right upper extremity cellulitis/abscess: Failed outpatient therapy. Wound culture from 08/19/17 growing Serratia, sensitive to Rocephin. Blood culture from 08/19/17 is negative. Repeat blood cultures are negative so far. Continue IV antibiotics. Continue pain control. 2. IV drug abuse: Patient was counseled. 3. Hepatitis C: Follow-up as outpatient. 4. DVT, right upper extremity: Continue heparin drip. Will transition to oral anticoagulation following surgery. Pablo Maldonado MD Aug 25, 2017 08:54
[2017-08-25] MEDS: SODIUM CHLORIDE 0.9% FLUSH 10 ML FLUSH IV FLUSH SCH ×2 (09:00→21:00)
[2017-08-25] MEDS: cefTRIAXone INJ 1,000 MG in SODIUM CHLORIDE 0.9% INJ 100 ML IV SCH (11:17)
[2017-08-25] MEDS ORDERED: LIDOCAINE HCL 1% PF 5 ML SYRINGE OTHER ONE (12:00)
[2017-08-25] MEDS ORDERED: ONDANSETRON HCL 4 MG/2 ML VIAL IV ONE (12:00)
[2017-08-25] MEDS ORDERED: PROPOFOL 200 MG/20 ML AMP IV ONE (12:00)
[2017-08-25] MEDS: HEPARIN-D5W 25,000 U/250 ML 250 ML IV PRN (12:33)
--- NOTE | 2017-08-25 13:13 | PD.CONS ---
HPI Service Orthopedic Surgeons Consult Requested By Reason for Consult Right septic bursitis Primary Care Physician No Primary Care Physician Admission Diagnosis cellulitis/infected wound right forearm failed outpatient therapy Diagnoses: Chief Complaint: right arm pain and swelling History of Present Illness 31-year-old female with approximate 1-1.5 week history of right arm pain and swelling. Patient did present to the emergency department last week and was given to oral antibiotics due to a small draining wound on her right forearm. Patient states she was compliant with the medications however over the last week it has increased. She did present to the ED a couple days ago and after a long wait just left home without medical treatment. She presented approximate 1 day ago to the ED with increasing right arm pain and swelling. Patient states she is able to move the elbow without any significant discomfort it is really just can't attach the posterior aspect of her elbow and forearm. She does admit to shooting up time allotted which she was not prescribed. She does admit to IV drug use on a regular basis. She admits to occasional fevers and chills over the last week. Review of Systems Constitutional: COMPLAINS OF: Fever Endocrine: DENIES: Heat/cold intolerance Eyes: DENIES: Blurred vision Ears, nose, mouth, throat: DENIES: Throat pain Respiratory: DENIES: Cough Cardiovascular: DENIES: Chest pain Gastrointestinal: DENIES: Abdominal pain Genitourinary: DENIES: Urinary incontinence Musculoskeletal: COMPLAINS OF: Muscle aches, DENIES: Joint pain Integumentary: COMPLAINS OF: Rash ( Red rash over her abdomen without raised lesions or pruritus) Hematologic/lymphatic: DENIES: Bruising Immunologic/allergic: DENIES: Eczema Neurologic: DENIES: Abnormal gait Psychiatric: DENIES: Anxiety Past Family Social History Past Medical History IV drug abuse Hepatitis C Scoliosis Multiple bulging disks Past Surgical History Tonsillectomy Allergies: Coded Allergies: cat dander (Unverified Allergy, Intermediate, Hives, 08/22/17) house dust (Unverified Allergy, Mild, Sneezing, 08/22/17) animal dander (Unverified Allergy, Unknown, UNKNOWN, 08/22/17) Active Ordered Medications Current Medications Medications (Trade) Dose Ordered Sig/Natalia Route Start Time Stop Time Status Last Admin Sodium Chloride 1,000 ml @ 100 mls/hr Q10H IV 08/23/17 19:00 08/25/17 09:30 (NS Flush) 2 ml UNSCH PRN IV FLUSH 08/23/17 18:45 (NS Flush) 2 ml BID IV FLUSH 08/23/17 21:00 08/24/17 23:14 (Narcan Inj) 0.4 mg UNSCH PRN IV PUSH 08/23/17 18:45 (Dilaudid Pf Inj) 1 mg Q4H PRN IV PUSH 08/23/17 20:15 08/25/17 12:36 Heparin Sodium/ Dextrose 250 ml @ 18 mls/hr TITRATE PRN IV 08/24/17 05:45 08/25/17 12:33 Ceftriaxone Sodium 1000 mg/ Sodium Chloride 100 ml @ 200 mls/hr Q24H IV 08/25/17 10:00 08/25/17 11:17 Reported Meds & Active Scripts Active [place] (Hydrocodone-Acetaminophen) 5 Mg-325 Mg Tab 1 Tab PO Q6H PRN Cleocin (Clindamycin HCl) 150 Mg Cap 150 Mg PO Q6H 10 Days Bactrim DS (Sulfamethoxazole-Trimethoprim) 800-160 Mg Tab 1 Tab PO BID Keflex (Cephalexin Monohydrate) 500 Mg Cap 500 Mg PO Q6 Reported Keflex 500 mg Cap (Cephalexin Monohydrate) 500 Mg Cap 500 Mg PO Q6 Family History Father with CAD Social History Patient reports IV drug abuse with last injection Monday. She uses Dilaudid. She also reports she takes Suboxone orally every day. Denies alcohol and tobacco. Physical Exam Vital Signs Vital Signs Date Time Temp Pulse Resp B/P (MAP) Pulse Ox O2 Delivery O2 Flow Rate FiO2 08/25/17 11:43 98.2 70 18 130/56 (80) 93 08/25/17 07:12 97.3 78 18 105/55 (72) 98 08/25/17 05:29 18 08/25/17 03:11 98.7 82 17 93/54 (67) 99 08/24/17 23:33 99.3 95 16 108/66 (80) 98 08/24/17 20:49 100.5 86 16 95/54 (68) 97 08/24/17 16:02 99.7 83 20 104/58 (73) 98 Physical Exam Patient awake, alert, no acute distress. Normocephalic Pupils equal No JVD Moist mucous membranes Nonlabored respirations Regular rate Soft nontender abdomen. There is a red rash over her abdomen, suspect red man syndrome from vancomycin Right upper extremity: Significant edema and tenderness palpation over the posterior aspect of the elbow and olecranon bursa which extends down to the posterior aspect of the forearm. Erythema slightly proximal to elbow, although patient states diminished since previously. Erythema does extend below elbow down almost to the wrist. Patient has full active range of motion of elbow without discomfort. Neurovascularly intact distally. Radial pulses palpable. Left upper extremity and bilateral lower extremity: No tenderness palpation, no deformities. No evidence of infection. Full active range motion and strength throughout. Neurovascular intact distally. Radial and dorsalis pedis pulses are palpable. Small rash over abdomen, consistent with possible red man syndrome Normal affect Laboratory Laboratory Tests Test 08/24/17 14:03 08/24/17 20:20 08/25/17 06:30 Activated Partial Thromboplast Time 49.7 61.1 65.8 Vancomycin Level Trough 15.9 White Blood Count 4.6 Red Blood Count 3.85 Hemoglobin 9.5 Hematocrit 28.5 Mean Corpuscular Volume 74.0 Mean Corpuscular Hemoglobin 24.6 Mean Corpuscular Hemoglobin Concent 33.3 Red Cell Distribution Width 13.7 Platelet Count 267 Mean Platelet Volume 7.8 Neutrophils (%) (Auto) 62.1 Lymphocytes (%) (Auto) 30.4 Monocytes (%) (Auto) 6.8 Eosinophils (%) (Auto) 0.4 Basophils (%) (Auto) 0.3 Neutrophils # (Auto) 2.9 Lymphocytes # (Auto) 1.4 Monocytes # (Auto) 0.3 Eosinophils # (Auto) 0.0 Basophils # (Auto) 0.0 CBC Comment DIFF FINAL Differential Comment Blood Urea Nitrogen 6 Creatinine 0.78 Random Glucose 150 Calcium Level 7.9 Sodium Level 138 Potassium Level 4.0 Chloride Level 106 Carbon Dioxide Level 25.5 Anion Gap 7 Estimat Glomerular Filtration Rate 87 Date/Time Source Procedure Growth Status 08/23/17 19:05 Blood Peripheral Aerobic Blood Culture - Preliminary NO GROWTH IN 2 DAYS Resulted 08/23/17 19:05 Blood Peripheral Anaerobic Blood Culture - Preliminary NO GROWTH IN 2 DAYS Resulted Result Diagram: 08/25/1730 08/25/1730 Assessment & Plan Assessment and Plan 31-year-old female IV drug user with failed nonoperative treatment of her right arm cellulitis and abscess with large posterior elbow and forearm abscess on imaging I discussed with the patient that given her abscess has worsened rather than improved with nonoperative management with oral antibiotics, I would recommend surgical intervention the form of irrigation and debridement of her right elbow and forearm. Risks of surgery including but not limited to: Persistent infection, neurovascular injury, possible need for further surgery, and other unforeseen consultations were all discussed with the patient. At this time she is consented to the procedure. Patient has been nothing by mouth since midnight. We'll keep nothing by mouth for surgery later today. Postoperative course including the likely placement of a drain postoperatively was discussed with the patient. Patient was counseled on avoiding IV drug use. Genevieve Fowler MD Aug 25, 2017 13:13
[2017-08-25] MEDS ORDERED: HYDROmorphone HCL PF 2 MG/ML VIAL ONE (19:54)
--- NOTE | 2017-08-25 20:38 | HHI.PR ---
cc: Genevieve Fowler MD Immediate Post Op Note Procedure Date: Aug 25, 2017 Pre Op Diagnosis: Deep abscess and olecranon bursitis right elbow and forearm Post Op Diagnosis: same Surgeon: Genevieve Fowler [employer] Personality(s): none Procedure: Irrigation and debridement right elbow olecranon bursitis and deep abscess right forearm Complications: none Specimen(s) removed: Culture sent to lab Estimated blood loss: 150cc Anesthesia: General Drains: [place] IVF Patient to: PACU Patient Condition: Good Date/Time of Procedure: SEE SURGICAL CARE RECORD Genevieve Fowler MD Aug 25, 2017 20:38
--- NOTE | 2017-08-25 20:41 | PD.ORT.PN ---
Subjective Subjective Remarks POD#0 I&D R olecranon septic bursitis and deep abscess Objective Vitals Vital Signs Date Time Temp Pulse Resp B/P (MAP) Pulse Ox O2 Delivery O2 Flow Rate FiO2 08/25/17 17:11 72 08/25/17 15:23 98.3 80 18 118/68 (85) 99 08/25/17 12:14 69 08/25/17 11:43 98.2 70 18 130/56 (80) 93 08/25/17 08:00 69 08/25/17 07:12 97.3 78 18 105/55 (72) 98 08/25/17 05:29 18 08/25/17 03:11 98.7 82 17 93/54 (67) 99 08/24/17 23:33 99.3 95 16 108/66 (80) 98 08/24/17 20:49 100.5 86 16 95/54 (68) 97 I/O 08/24/17 08/24/17 08/24/17 08/25/17 08/25/17 08/25/17 07:00 15:00 23:00 07:00 15:00 23:00 Intake Total 500 ml 1100 ml 1300 ml 250 ml Output Total 150 ml Balance 500 ml 1100 ml 1300 ml 100 ml Intake Oral 200 ml IV Total 300 ml 1100 ml 1300 ml Other 250 ml Output Estimated Blood Loss 150 ml Result Diagram: 08/25/17 0630 08/25/17 0630 Objective Remarks Right upper extremity: MERVIN wrap in place, sonya left in place. BCR Assessment & Plan Assessment and Plan 31-year-old female IV drug user with failed nonoperative treatment of her right arm cellulitis and abscess with large posterior elbow and forearm abscess , POD#0 s/p I&D R olecranon bursitis/deep abscess 1. WBAT RUE. Encourage ROM 2. Start dressing changes POD#2 and remove sonya drain. 3. IV antibiotics per medicine/ID. Intraop culture obtained (although patient had already been started on abx 4. No plan for further orthopedic surgery. Genevieve Fowler MD Aug 25, 2017 20:40
[2017-08-25] MEDS ORDERED: DO NOT ADM ANY ANTICOAGULANT DRUGS PRN (20:44)
[2017-08-25] MEDS ORDERED: SODIUM CHLORIDE 0.9% FLUSH 10 ML FLUSH IV FLUSH PRN (20:45)
[2017-08-25] MEDS ORDERED: Post-op Orders (for Pharmacy) XX ONE (20:45)
[2017-08-25] MEDS ORDERED: MEPERIDINE HCL 25 MG/ML VIAL ONE (20:51)
[2017-08-25] MEDS ORDERED: MORPHINE SULFATE 8 MG/ML INJ ONE (21:28)
[2017-08-25] MEDS ORDERED: *morphine SULFATE 10 MG/ML PERIprocedure ONLY ONE (21:46)
[2017-08-26] MEDS: HYDROmorphone HCL PF 2 MG/ML VIAL IV PUSH PRN ×5 (03:23→21:11)
[2017-08-26 05:07] VITALS: BP 93/49; PULSE 73; RESP 17; TEMP 97.6; O2SAT 95
--- NOTE | 2017-08-26 07:08 | PD.ORT.PN ---
Subjective Subjective Remarks POD 1 s/p I&D right elbow doing well .pain controlled. no complaints at this time Objective Vitals Vital Signs Date Time Temp Pulse Resp B/P (MAP) Pulse Ox O2 Delivery O2 Flow Rate FiO2 08/26/17 05:07 97.6 73 17 93/49 (64) 95 08/25/17 23:00 97.9 84 17 125/66 (85) 96 08/25/17 21:45 77 12 117/70 (86) 96 Nasal Cannula 2 08/25/17 21:30 81 14 122/78 (93) 95 Nasal Cannula 2 08/25/17 21:15 77 12 119/72 (88) 96 Nasal Cannula 2 08/25/17 21:00 82 12 121/80 (94) 96 Nasal Cannula 2 08/25/17 20:45 97.9 92 15 129/86 (100) 96 Nasal Cannula 2 08/25/17 17:11 72 08/25/17 15:23 98.3 80 18 118/68 (85) 99 08/25/17 12:14 69 08/25/17 11:43 98.2 70 18 130/56 (80) 93 08/25/17 08:00 69 08/25/17 07:12 97.3 78 18 105/55 (72) 98 I/O 08/25/17 08/25/17 08/25/17 08/26/17 08/26/17 08/26/17 07:00 15:00 23:00 07:00 15:00 23:00 Intake Total 1100 ml 1300 ml 250 ml 360 ml Output Total 150 ml Balance 1100 ml 1300 ml 100 ml 360 ml Intake Oral 360 ml IV Total 1100 ml 1300 ml Other 250 ml Output Estimated Blood Loss 150 ml # Voids 2 Result Diagram: 08/25/17 0630 08/25/17 0630 Objective Remarks Right upper extremity: MERVIN wrap in place, sonya left in place. dressings clean and dry. full motion of fingers/wrist. full sensation Assessment & Plan Assessment and Plan 31-year-old female IV drug user with failed nonoperative treatment of her right arm cellulitis and abscess with large posterior elbow and forearm abscess , POD#1 s/p I&D R olecranon bursitis/deep abscess 1. WBAT RUE. Encourage ROM 2. Start dressing changes POD#2 and remove sonya drain. 3. IV antibiotics per medicine/ID. Intraop culture obtained (although patient had already been started on abx 4. No plan for further orthopedic surgery. Horacio Cook/First Tamir DOMINGUEZ Aug 26, 2017 07:08
[2017-08-26 08:00] VITALS: BP 119/67; PULSE 90; RESP 16; TEMP 97.6; O2SAT 100
[2017-08-26] MEDS: SODIUM CHLOR 0.9% 1000 ML INJ 1,000 ML IV SCH ×2 (08:01→17:59)
[2017-08-26] MEDS: SODIUM CHLORIDE 0.9% FLUSH 10 ML FLUSH IV FLUSH SCH ×2 (08:01→21:00)
[2017-08-26] MEDS: cefTRIAXone INJ 1,000 MG in SODIUM CHLORIDE 0.9% INJ 100 ML IV SCH (09:48)
[2017-08-26 10:15] VITALS: O2SAT 97
[2017-08-26 12:00] VITALS: BP 107/57; PULSE 84; PULSE 90; RESP 18; TEMP 97.8; O2SAT 100
[2017-08-26] MEDS ORDERED: PHARMACY ORDERED LAB ONE (12:45)
--- NOTE | 2017-08-26 13:14 | HHI.PR ---
Subjective Remarks Follow up right forearm abscess, olecranon bursitis. Patient reports a rash on her abdomen, back, and legs. It started yesterday and became pruritic today. No dyspnea, chest pain, nausea, vomiting, diarrhea, constipation. Objective Vitals Vital Signs Date Time Temp Pulse Resp B/P (MAP) Pulse Ox O2 Delivery O2 Flow Rate FiO2 08/26/17 08:00 97.6 90 16 119/67 (84) 100 08/26/17 05:07 97.6 73 17 93/49 (64) 95 08/25/17 23:00 97.9 84 17 125/66 (85) 96 08/25/17 21:45 77 12 117/70 (86) 96 Nasal Cannula 2 08/25/17 21:30 81 14 122/78 (93) 95 Nasal Cannula 2 08/25/17 21:15 77 12 119/72 (88) 96 Nasal Cannula 2 08/25/17 21:00 82 12 121/80 (94) 96 Nasal Cannula 2 08/25/17 20:45 97.9 92 15 129/86 (100) 96 Nasal Cannula 2 08/25/17 17:11 72 08/25/17 15:23 98.3 80 18 118/68 (85) 99 I/O 08/25/17 08/25/17 08/25/17 08/26/17 08/26/17 08/26/17 07:00 15:00 23:00 07:00 15:00 23:00 Intake Total 1100 ml 1300 ml 250 ml 360 ml Output Total 150 ml Balance 1100 ml 1300 ml 100 ml 360 ml Intake Oral 360 ml IV Total 1100 ml 1300 ml Other 250 ml Output Estimated Blood Loss 150 ml # Voids 2 Result Diagram: 08/25/17 0630 08/25/17 0630 Imaging Last Impressions Elbow MRI 08/24/17 0000 Signed Impressions: Service Date/Time: July 17:02 - CONCLUSION: Large olecranon bursitis. No osteomyelitis. Daniel Light MD Upper Extremity Ultrasound 08/23/17 0000 Signed Impressions: Service Date/Time: Wednesday, August 23, 2017 22:28 - CONCLUSION: Large subcutaneous fluid collection in the posterior elbow. Kaden Jain MD Objective Remarks General: No acute distress. Heart: Regular rate and rhythm. No murmur. Lungs: Clear to auscultation bilaterally. No wheezes, rales, or rhonchi. Breathing is nonlabored. Abdomen: Soft, nontender, nondistended. Extremities: No lower extremity edema. Right elbow heavily bandaged. Psych: Alert and oriented. Skin: Erythematous rash involving the abdomen, upper legs, and back. Procedures 08/25/17 irrigation and debridement of right elbow olecranon bursitis and deep abscess of right forearm Urinary Catheter: No Vascular Central Line Catheter: No A/P Assessment and Plan 1. Right upper extremity cellulitis/abscess: Failed outpatient therapy. Wound culture from 08/19/17 growing Serratia, sensitive to Rocephin. Blood culture from 08/19/17 is negative. Repeat blood cultures are negative so far. Continue IV antibiotics. Continue pain control. Status post irrigation and debridement. Appreciate orthopedic surgery recommendations. 2. IV drug abuse: Patient was counseled. 3. Hepatitis C: Follow-up as outpatient. 4. DVT, right upper extremity: Resume heparin drip. Will bridge to therapeutic INR on Coumadin. Pablo Maldonado MD Aug 26, 2017 13:14
[2017-08-26] MEDS: HEPARIN-D5W 25,000 U/250 ML 250 ML IV PRN (14:24)
[2017-08-26 16:00] VITALS: BP 109/66; PULSE 87; RESP 18; TEMP 97.8; O2SAT 99
[2017-08-26] MEDS: diphenhydrAMINE HCL 25 MG CAP PO PRN ×2 (16:34→21:11)
[2017-08-26 20:00] VITALS: BP 107/58; PULSE 76; RESP 20; TEMP 98.1; O2SAT 98
[2017-08-26 20:11] LABS: AUTOMATED NEUTROPHIL # 1.6 TH/MM3 (1.8-7.7); BASOPHIL % 0.4 % (0.0-2.0); EOSINOPHIL # 0.1 TH/MM3 (0-0.4); EOSINOPHIL % 3.1 % (0.0-4.0); HEMATOCRIT 31.8 % (35.0-46.0); HEMOGLOBIN 10.3 GM/DL (11.6-15.3); LYMPH % 44.8 % (9.0-44.0); LYMPHOCYTE # 1.6 TH/MM3 (1.0-4.8); MEAN CELL VOLUME 74.6 FL (80.0-100.0); MEAN CORPUSCULAR HEMOGLOBIN 24.3 PG (27.0-34.0); MEAN CORPUSCULAR HGB CONC 32.5 % (32.0-36.0); MEAN PLATELET VOLUME 7.1 FL (7.0-11.0); MONO % 6.7 % (0.0-8.0); MONOCYTE # 0.2 TH/MM3 (0-0.9); PLATELET COUNT 359 TH/MM3 (150-450); RED BLOOD COUNT 4.26 MIL/MM3 (4.00-5.30); RED CELL DISTRIBUTION WIDTH 13.8 % (11.6-17.2); WHITE BLOOD COUNT 3.6 TH/MM3 (4.0-11.0)
[2017-08-26 20:36] LABS: BICARBONATE 26.9 MEQ/L (21.0-32.0); CALCIUM 8.7 MG/DL (8.5-10.1); CREATININE 0.61 MG/DL (0.50-1.00)
[2017-08-27] VITALS (7 sets, daily range): BP systolic 98–134; BP diastolic 53–81; PULSE 64–102; RESP 16–22; TEMP 97.4–98.6; O2SAT 98–100
[2017-08-27] MEDS: HYDROmorphone HCL PF 2 MG/ML VIAL IV PUSH PRN ×6 (01:15→22:57)
[2017-08-27] MEDS: diphenhydrAMINE HCL 25 MG CAP PO PRN ×6 (01:16→22:57)
[2017-08-27] MEDS: SODIUM CHLOR 0.9% 1000 ML INJ 1,000 ML IV SCH ×3 (03:00→23:00)
[2017-08-27] MEDS: HEPARIN-D5W 25,000 U/250 ML 250 ML IV PRN ×2 (03:54→18:52)
[2017-08-27 04:43] LABS: HEMATOCRIT 30.7 % (35.0-46.0); HEMOGLOBIN 9.8 GM/DL (11.6-15.3); MEAN CELL VOLUME 74.7 FL (80.0-100.0); MEAN CORPUSCULAR HEMOGLOBIN 23.8 PG (27.0-34.0); MEAN CORPUSCULAR HGB CONC 31.9 % (32.0-36.0); MEAN PLATELET VOLUME 7.2 FL (7.0-11.0); PLATELET COUNT 285 TH/MM3 (150-450); RED BLOOD COUNT 4.11 MIL/MM3 (4.00-5.30); RED CELL DISTRIBUTION WIDTH 13.6 % (11.6-17.2); WHITE BLOOD COUNT 3.9 TH/MM3 (4.0-11.0)
--- NOTE | 2017-08-27 07:18 | PD.ORT.PN ---
Subjective Subjective Remarks Resting comfortably Objective Vitals Vital Signs Date Time Temp Pulse Resp B/P (MAP) Pulse Ox O2 Delivery O2 Flow Rate FiO2 08/27/17 04:00 97.6 102 22 134/81 (98) 100 08/27/17 00:00 97.4 66 18 102/59 (73) 98 08/26/17 20:00 98.1 76 20 107/58 (74) 98 08/26/17 16:00 97.8 87 18 109/66 (80) 99 08/26/17 12:00 90 08/26/17 12:00 97.8 84 18 107/57 (74) 100 08/26/17 10:15 97 Nasal Cannula 2.00 08/26/17 08:00 97.6 90 16 119/67 (84) 100 I/O 08/26/17 08/26/17 08/26/17 08/27/17 08/27/17 08/27/17 07:00 15:00 23:00 07:00 15:00 23:00 Intake Total 360 ml 720 ml Balance 360 ml 720 ml Intake Oral 360 ml 720 ml # Voids 2 6 2 # Bowel Movements 0 0 Result Diagram: 08/27/17 0432 08/26/171945 Objective Remarks Right upper extremity: MERVIN wrap in place, sonya left in place. dressings clean and dry. full motion of fingers/wrist. full sensation Assessment & Plan Assessment and Plan 31-year-old female IV drug user with failed nonoperative treatment of her right arm cellulitis and abscess with large posterior elbow and forearm abscess , POD#2 s/p I&D R olecranon bursitis/deep abscess 1. WBAT RUE. Encourage ROM 2. Start dressing changes today and remove sonya drain. 3. IV antibiotics per medicine/ID. Intraop culture obtained (although patient had already been started on abx 4. No plan for further orthopedic surgery. Frank Espinoza Jr. Aug 27, 2017 07:18
[2017-08-27] MEDS: SODIUM CHLORIDE 0.9% FLUSH 10 ML FLUSH IV FLUSH SCH ×2 (10:22→21:00)
[2017-08-27] MEDS: cefTRIAXone INJ 1,000 MG in SODIUM CHLORIDE 0.9% INJ 100 ML IV SCH (10:22)
--- NOTE | 2017-08-27 12:44 | HHI.PR ---
Subjective Remarks Follow up DVT, elbow infection. Patient states that her elbow is feeling better. She is able to move it more and pain is improving. Rash is less pruritic. Objective Vitals Vital Signs Date Time Temp Pulse Resp B/P (MAP) Pulse Ox O2 Delivery O2 Flow Rate FiO2 08/27/17 08:00 98.1 64 16 98/53 (68) 98 08/27/17 04:00 97.6 102 22 134/81 (98) 100 08/27/17 00:00 97.4 66 18 102/59 (73) 98 08/26/17 20:00 98.1 76 20 107/58 (74) 98 08/26/17 16:00 97.8 87 18 109/66 (80) 99 I/O 08/26/17 08/26/17 08/26/17 08/27/17 08/27/17 08/27/17 07:00 15:00 23:00 07:00 15:00 23:00 Intake Total 360 ml 720 ml Balance 360 ml 720 ml Intake Oral 360 ml 720 ml # Voids 2 6 2 # Bowel Movements 0 0 Result Diagram: 08/27/17 0432 08/26/176 Imaging Last Impressions Elbow MRI 08/24/17 0000 Signed Impressions: Service Date/Time: July 17:02 - CONCLUSION: Large olecranon bursitis. No osteomyelitis. Daniel Light MD Upper Extremity Ultrasound 08/23/17 0000 Signed Impressions: Service Date/Time: Wednesday, August 23, 2017 22:28 - CONCLUSION: Large subcutaneous fluid collection in the posterior elbow. Kaden Jain MD Objective Remarks Examined in presence of the nurse. General: No acute distress. Heart: Regular rate and rhythm. No murmur. Lungs: Clear to auscultation bilaterally. No wheezes, rales, or rhonchi. Breathing is nonlabored. Abdomen: Soft, nontender, nondistended. Extremities: No lower extremity edema. Right elbow heavily bandaged. Psych: Alert and oriented. Skin: Erythematous rash involving the abdomen, upper legs, and back. Procedures 08/25/17 irrigation and debridement of right elbow olecranon bursitis and deep abscess of right forearm Urinary Catheter: No Vascular Central Line Catheter: No A/P Assessment and Plan 1. Right upper extremity cellulitis/abscess: Failed outpatient therapy. Wound culture from 08/19/17 growing Serratia, sensitive to Rocephin. Blood culture from 08/19/17 is negative. Repeat blood cultures are negative so far. Wound culture from 08/25/17 growing viridans streptococcus. Continue IV antibiotics. Continue pain control. Status post irrigation and debridement. Appreciate orthopedic surgery recommendations. 2. IV drug abuse: Patient was counseled. 3. Hepatitis C: Follow-up as outpatient. 4. DVT, right upper extremity: Continue heparin drip. Will bridge to therapeutic INR on Coumadin. Pablo Maldonado MD Aug 27, 2017 12:44
[2017-08-27] MEDS: WARFARIN SOD 5 MG TAB PO SCH (15:28)
[2017-08-27 15:53] LABS: PROTHROMBIN TIME - PATIENT 10.6 SEC (9.8-11.6)
[2017-08-28] VITALS (8 sets, daily range): BP systolic 104–127; BP diastolic 55–82; PULSE 62–80; RESP 18–20; TEMP 97.9–98.2; O2SAT 96–99
[2017-08-28] MEDS: diphenhydrAMINE HCL 25 MG CAP PO PRN ×5 (03:34→20:37)
[2017-08-28] MEDS: HYDROmorphone HCL PF 2 MG/ML VIAL IV PUSH PRN ×5 (03:34→20:40)
[2017-08-28] MEDS: HEPARIN-D5W 25,000 U/250 ML 250 ML IV PRN ×2 (08:50→23:36)
[2017-08-28 10:47] LABS: PROTHROMBIN TIME - PATIENT 10.4 SEC (9.8-11.6)
[2017-08-28] MEDS: cefTRIAXone INJ 1,000 MG in SODIUM CHLORIDE 0.9% INJ 100 ML IV SCH (10:57)
--- NOTE | 2017-08-28 13:34 | HHI.PR ---
Subjective Remarks Follow-up right arm DVT, right elbow infection. The patient states that her elbow pain is improving. She has increased range of motion of the right elbow. Rash has almost resolved. Objective Vitals Vital Signs Date Time Temp Pulse Resp B/P (MAP) Pulse Ox O2 Delivery O2 Flow Rate FiO2 08/28/17 10:41 96 21 08/28/17 08:21 98.1 62 20 116/66 (83) 96 08/28/17 04:00 97.9 71 18 108/66 (80) 98 08/28/17 00:00 97.9 64 20 104/55 (71) 98 08/27/17 21:30 73 08/27/17 20:30 Nasal Cannula 2.00 08/27/17 20:00 98.0 85 20 120/72 (88) 98 08/27/17 17:33 2.00 08/27/17 16:00 98.6 67 16 98/57 (71) 98 I/O 08/27/17 08/27/17 08/27/17 08/28/17 08/28/17 08/28/17 07:00 15:00 23:00 07:00 15:00 23:00 Intake Total 720 ml Balance 720 ml Intake Oral 720 ml # Voids 2 5 2 # Bowel Movements 0 1 0 Result Diagram: 08/27/17 0432 08/26/171945 Imaging Last Impressions Elbow MRI 08/24/17 0000 Signed Impressions: Service Date/Time: July 17:02 - CONCLUSION: Large olecranon bursitis. No osteomyelitis. Daniel Light MD Upper Extremity Ultrasound 08/23/17 0000 Signed Impressions: Service Date/Time: Wednesday, August 23, 2017 22:28 - CONCLUSION: Large subcutaneous fluid collection in the posterior elbow. Kaden Jain MD Objective Remarks Examined in presence of the nurse. General: No acute distress. Heart: Regular rate and rhythm. No murmur. Lungs: Clear to auscultation bilaterally. No wheezes, rales, or rhonchi. Breathing is nonlabored. Abdomen: Soft, nontender, nondistended. Extremities: No lower extremity edema. Right elbow heavily bandaged. Good range of motion of the right elbow. Psych: Alert and oriented. Procedures 08/25/17 irrigation and debridement of right elbow olecranon bursitis and deep abscess of right forearm Urinary Catheter: No Vascular Central Line Catheter: No A/P Assessment and Plan 1. Right upper extremity cellulitis/abscess: Failed outpatient therapy. Wound culture from 08/19/17 growing Serratia, sensitive to Rocephin. Blood culture from 08/19/17 is negative. Repeat blood cultures are negative so far. Wound culture from 08/25/17 growing viridans streptococcus, sensitivities pending. Continue IV antibiotics. Continue pain control. Status post irrigation and debridement. Appreciate orthopedic surgery recommendations. 2. IV drug abuse: Patient was counseled. 3. Hepatitis C: Follow-up as outpatient. 4. DVT, right upper extremity: Continue heparin drip bridging to therapeutic INR on Coumadin. INR is still subtherapeutic. Discharge Planning When INR is therapeutic. Pablo Maldonado MD Aug 28, 2017 13:34
[2017-08-28] MEDS ORDERED: WARFARIN SOD 2.5 MG TAB PO ONE (16:00)
[2017-08-28] MEDS: WARFARIN SOD 5 MG TAB PO SCH (16:13)
[2017-08-28] MEDS: SODIUM CHLORIDE 0.9% FLUSH 10 ML FLUSH IV FLUSH SCH (20:41)
[2017-08-28] MEDS: SODIUM CHLOR 0.9% 1000 ML INJ 1,000 ML IV SCH (20:42)
[2017-08-29] VITALS (12 sets, daily range): BP systolic 97–119; BP diastolic 52–84; PULSE 56–93; RESP 18–20; TEMP 97–98.7; O2SAT 97–99
[2017-08-29] MEDS: diphenhydrAMINE HCL 25 MG CAP PO PRN ×6 (01:12→22:15)
[2017-08-29] MEDS: HYDROmorphone HCL PF 2 MG/ML VIAL IV PUSH PRN ×6 (01:12→22:17)
[2017-08-29] MEDS: SODIUM CHLOR 0.9% 1000 ML INJ 1,000 ML IV SCH ×2 (05:25→15:00)
[2017-08-29] MEDS: SODIUM CHLORIDE 0.9% FLUSH 10 ML FLUSH IV FLUSH SCH ×2 (09:00→22:17)
[2017-08-29] MEDS: cefTRIAXone INJ 1,000 MG in SODIUM CHLORIDE 0.9% INJ 100 ML IV SCH (09:38)
[2017-08-29 11:33] LABS: INTERNATIONAL NORMALIZED RATIO 1.3 RATIO; PROTHROMBIN TIME - PATIENT 12.7 SEC (9.8-11.6)
[2017-08-29] MEDS: HEPARIN-D5W 25,000 U/250 ML 250 ML IV PRN (13:19)
--- NOTE | 2017-08-29 14:20 | HHI.PR ---
Subjective Remarks Follow-up right arm DVT/right elbow infection 08/29/17-patient seen and examined, complains of right elbow pain otherwise afebrile and also complains of right hand swelling Objective Vitals Vital Signs Date Time Temp Pulse Resp B/P (MAP) Pulse Ox O2 Delivery O2 Flow Rate FiO2 08/29/17 12:40 98.5 60 20 100/55 (70) 99 08/29/17 12:36 56 08/29/17 08:17 98.0 62 20 119/59 (79) 98 08/29/17 06:08 98.7 64 20 97/52 (67) 99 08/29/17 04:30 74 08/29/17 01:38 97.8 77 20 105/59 (74) 98 08/29/17 00:30 72 08/28/17 21:39 98.2 80 20 127/82 (97) 99 08/28/17 20:30 67 08/28/17 17:49 97 21 08/28/17 17:40 97.9 76 20 108/61 (77) 97 I/O 08/28/17 08/28/17 08/28/17 08/29/17 08/29/17 08/29/17 07:00 15:00 23:00 07:00 15:00 23:00 Intake Total 1000 ml Balance 1000 ml IV Total 1000 ml # Voids 2 1 # Bowel Movements 0 Result Diagram: 08/27/17 0432 08/26/176 Imaging Last Impressions Elbow MRI 08/24/17 0000 Signed Impressions: Service Date/Time: July 17:02 - CONCLUSION: Large olecranon bursitis. No osteomyelitis. Dnaiel Light MD Upper Extremity Ultrasound 08/23/17 0000 Signed Impressions: Service Date/Time: Wednesday, August 23, 2017 22:28 - CONCLUSION: Large subcutaneous fluid collection in the posterior elbow. Kaden Jain MD Objective Remarks GENERAL: NAD SKIN: Warm and dry. HEAD: Normocephalic. EYES: No scleral icterus. No injection or drainage. NECK: Supple, trachea midline. No JVD or lymphadenopathy. CARDIOVASCULAR: Regular rate and rhythm without murmurs, gallops, or rubs. RESPIRATORY: Breath sounds equal bilaterally. No accessory muscle use. GASTROINTESTINAL: Abdomen soft, non-tender, nondistended. MUSCULOSKELETAL: No cyanosis, or edema. dressing over right elbow BACK: Nontender without obvious deformity. No CVA tenderness. Procedures 08/25/17 irrigation and debridement of right elbow olecranon bursitis and deep abscess of right forearm A/P Problem List: (1) DVT of axillary vein, acute right ICD Code: I82.A11 - Acute embolism and thrombosis of right axillary vein (2) Arm DVT (deep venous thromboembolism), acute ICD Code: I82.629 - Acute embolism and thrombosis of deep veins of unspecified upper extremity (3) Bursitis of right elbow ICD Code: M70.31 - Other bursitis of elbow, right elbow Assessment and Plan 31 year-old female with 1. Right upper extremity cellulitis/abscess: Failed outpatient therapy. Wound culture from 08/19/17 growing Serratia, sensitive to Rocephin. Blood culture from 08/19/17 is negative. Repeat blood cultures are negative so far. Wound culture from 08/25/17 growing viridans streptococcus, sensitivities pending. Continue IV antibiotics and consult infectious disease specialist. Continue pain control. Status post irrigation and debridement. Appreciate orthopedic surgery recommendations. 2. IV drug abuse: Patient was counseled. 3. Hepatitis C: Follow-up as outpatient. 4. DVT, right upper extremity: Continue heparin drip bridging to therapeutic INR on Coumadin. Lionel Rios MD Aug 29, 2017 14:20
[2017-08-29] MEDS: WARFARIN SOD 5 MG TAB PO SCH (17:18)
[2017-08-30] VITALS (7 sets, daily range): BP systolic 112–122; BP diastolic 62–73; PULSE 52–80; RESP 18; TEMP 97.7–98.2; O2SAT 95–99
[2017-08-30] MEDS: HYDROmorphone HCL PF 2 MG/ML VIAL IV PUSH PRN ×6 (02:20→22:30)
[2017-08-30] MEDS: SODIUM CHLOR 0.9% 1000 ML INJ 1,000 ML IV SCH ×3 (02:21→21:00)
[2017-08-30] MEDS: HEPARIN-D5W 25,000 U/250 ML 250 ML IV PRN ×2 (04:32→20:25)
[2017-08-30] MEDS: diphenhydrAMINE HCL 25 MG CAP PO PRN ×3 (06:40→18:36)
[2017-08-30 08:47] LABS: HEMATOCRIT 30.2 % (35.0-46.0); HEMOGLOBIN 9.8 GM/DL (11.6-15.3); MEAN CELL VOLUME 75.6 FL (80.0-100.0); MEAN CORPUSCULAR HEMOGLOBIN 24.6 PG (27.0-34.0); MEAN CORPUSCULAR HGB CONC 32.5 % (32.0-36.0); MEAN PLATELET VOLUME 6.9 FL (7.0-11.0); PLATELET COUNT 343 TH/MM3 (150-450); RED BLOOD COUNT 3.99 MIL/MM3 (4.00-5.30); RED CELL DISTRIBUTION WIDTH 13.3 % (11.6-17.2); WHITE BLOOD COUNT 4.4 TH/MM3 (4.0-11.0)
[2017-08-30 08:51] LABS: INTERNATIONAL NORMALIZED RATIO 1.5 RATIO; PROTHROMBIN TIME - PATIENT 15.4 SEC (9.8-11.6)
[2017-08-30] MEDS: cefTRIAXone INJ 1,000 MG in SODIUM CHLORIDE 0.9% INJ 100 ML IV SCH (10:26)
[2017-08-30] MEDS: SODIUM CHLORIDE 0.9% FLUSH 10 ML FLUSH IV FLUSH SCH ×2 (10:32→20:25)
--- NOTE | 2017-08-30 11:13 | HHI.PR ---
Subjective Remarks Follow-up right arm DVT/right elbow infection 08/29/17-patient seen and examined, complains of right elbow pain otherwise afebrile and also complains of right hand swelling 08/30/17-patient seen and examined, pain to right arm better controlled. Afebrile Objective Vitals Vital Signs Date Time Temp Pulse Resp B/P (MAP) Pulse Ox O2 Delivery O2 Flow Rate FiO2 08/30/17 08:00 97.9 52 18 114/63 (80) 99 08/30/17 05:11 97.7 70 18 122/73 (89) 98 08/30/17 01:21 98.2 77 18 112/68 (83) 96 08/29/17 20:44 98.0 93 18 119/84 (96) 97 08/29/17 20:30 90 08/29/17 18:06 78 08/29/17 16:44 97.0 70 20 105/56 (72) 98 08/29/17 15:27 87 08/29/17 12:40 98.5 60 20 100/55 (70) 99 08/29/17 12:36 56 I/O 08/29/17 08/29/17 08/29/17 08/30/17 08/30/17 08/30/17 07:00 15:00 23:00 07:00 15:00 23:00 Intake Total 1000 ml 960 ml Output Total 1 ml Balance 1000 ml 960 ml -1 ml Intake Oral 960 ml IV Total 1000 ml Output Urine Total 1 ml # Voids 1 4 Result Diagram: 08/30/1731 08/26/17 1946 Objective Remarks GENERAL: NAD SKIN: Warm and dry. HEAD: Normocephalic. EYES: No scleral icterus. No injection or drainage. NECK: Supple, trachea midline. No JVD or lymphadenopathy. CARDIOVASCULAR: Regular rate and rhythm without murmurs, gallops, or rubs. RESPIRATORY: Breath sounds equal bilaterally. No accessory muscle use. GASTROINTESTINAL: Abdomen soft, non-tender, nondistended. MUSCULOSKELETAL: No cyanosis, or edema. dressing over right elbow BACK: Nontender without obvious deformity. No CVA tenderness. Procedures 08/25/17 irrigation and debridement of right elbow olecranon bursitis and deep abscess of right forearm A/P Problem List: (1) DVT of axillary vein, acute right ICD Code: I82.A11 - Acute embolism and thrombosis of right axillary vein (2) Arm DVT (deep venous thromboembolism), acute ICD Code: I82.629 - Acute embolism and thrombosis of deep veins of unspecified upper extremity (3) Bursitis of right elbow ICD Code: M70.31 - Other bursitis of elbow, right elbow Assessment and Plan 31 year-old female with 1. Right upper extremity cellulitis/abscess: Failed outpatient therapy. Wound culture from 08/19/17 growing Serratia, sensitive to Rocephin. Blood culture from 08/19/17 is negative. Repeat blood cultures are negative so far. Wound culture from 08/25/17 growing viridans streptococcus, sensitivities pending. Continue IV antibiotics and Infectious disease specialist consultation pending. Continue pain control. Status post irrigation and debridement. Appreciate orthopedic surgery recommendations. 2. IV drug abuse: Patient was counseled. 3. Hepatitis C: Follow-up as outpatient. 4. DVT, right upper extremity: Continue heparin drip bridging to therapeutic INR on Coumadin. Lionel Rios MD Aug 30, 2017 11:13
--- NOTE | 2017-08-30 14:35 | PD.ID.CON ---
History of Present Illness Service Infectious disease Consult Requested By Dr. Rios Reason for Consult Evaluation and management of right elbow bursitis. Primary Care Physician No Primary Care Physician Diagnoses: History of Present Illness Ms. Gandhi is a 31-year-old female with past medical history significant for IV drug abuse, hepatitis C. presents to the emergency department for evaluation of right upper extremity cellulitis. The patient was seen in the emergency department on 08/19/17 for evaluation of a right forearm abscess which was self draining. She also had a developing cellulitis surrounding the right forearm. Wound cultures were taken and the patient was discharged to home with Bactrim and clindamycin. Wound culture positive for Serratia, sensitive to Bactrim. Despite compliance with her antibiotics the patient's left elbow cellulitis has spread almost to the axillary region. The area is warm to the touch with possible fluctuance. The patient is able to fully move her arm with minimal discomfort. She denies fever/chills. Denies fever or chills Denies blurry vision, otorrhea, rhinorrhea Denies sore throat and cough No chest pain, palpitations No shortness of breath or wheezing No abdominal pain Denies constipation/diarrhea/nausea/vomiting Denies muscle pain Denies focal weakness No rashes Infectious disease is consulted for evaluation and management of right elbow bursitis. Review of Systems ROS Limitations: Poor Historian Past Family Social History Allergies: Coded Allergies: cat dander (Unverified Allergy, Intermediate, Hives, 08/22/17) house dust (Unverified Allergy, Mild, Sneezing, 08/22/17) animal dander (Unverified Allergy, Unknown, UNKNOWN, 08/22/17) Past Medical History IV drug abuse Hepatitis C Scoliosis Multiple bulging disks Past Surgical History Tonsillectomy Reported Medications Reported Meds & Active Scripts Active Marana (Hydrocodone-Acetaminophen) 5 Mg-325 Mg Tab 1 Tab PO Q6H PRN Cleocin (Clindamycin HCl) 150 Mg Cap 150 Mg PO Q6H 10 Days Bactrim DS (Sulfamethoxazole-Trimethoprim) 800-160 Mg Tab 1 Tab PO BID Keflex (Cephalexin Monohydrate) 500 Mg Cap 500 Mg PO Q6 Reported Keflex 500 mg Cap (Cephalexin Monohydrate) 500 Mg Cap 500 Mg PO Q6 Active Ordered Medications Current Medications Medications (Trade) Dose Ordered Sig/Natalai Route Start Time Stop Time Status Last Admin Sodium Chloride 1,000 ml @ 100 mls/hr Q10H IV 08/23/17 19:00 08/30/17 10:32 (Narcan Inj) 0.4 mg UNSCH PRN IV PUSH 08/23/17 18:45 (Dilaudid Pf Inj) 1 mg Q4H PRN IV PUSH 08/23/17 20:15 08/30/17 18:37 Heparin Sodium/ Dextrose 250 ml @ 18 mls/hr TITRATE PRN IV 08/24/17 05:45 08/30/17 04:32 (NS Flush) 2 ml UNSCH PRN IV FLUSH 08/25/17 20:45 (NS Flush) 2 ml BID IV FLUSH 08/25/17 21:00 08/30/17 10:32 (Benadryl) 25 mg Q4H PRN PO 08/26/17 15:30 08/30/17 18:36 Pharmacy Profile Note 0 ml @ 0 mls/hr UNSCH OTHER 08/27/17 12:45 (Coumadin) 5 mg DAILY@1600 PO 08/27/17 16:00 08/30/17 16:03 Ceftriaxone Sodium 2000 mg/ Sodium Chloride 100 ml @ 200 mls/hr Q24H IV 08/31/17 10:00 Family History Reviewed and noncontributory to current infectious disease problem. Social History IV drug abuse. Denies any alcohol. Will live with her mother going forward for a while. Physical Exam Vital Signs Vital Signs Date Time Temp Pulse Resp B/P (MAP) Pulse Ox O2 Delivery O2 Flow Rate FiO2 08/30/17 12:00 98.2 65 18 120/72 (88) 95 08/30/17 11:19 75 08/30/17 08:00 97.9 52 18 114/63 (80) 99 08/30/17 05:11 97.7 70 18 122/73 (89) 98 08/30/17 01:21 98.2 77 18 112/68 (83) 96 08/29/17 20:44 98.0 93 18 119/84 (96) 97 08/29/17 20:30 90 08/29/17 18:06 78 08/29/17 16:44 97.0 70 20 105/56 (72) 98 08/29/17 15:27 87 Physical Exam GENERAL: This is a well-nourished, well-developed patient, in no apparent distress. SKIN: No rashes, ecchymoses or lesions. Cool and dry. HEAD: Atraumatic. Normocephalic. No temporal or scalp tenderness. EYES: Pupils equal round and reactive. Extraocular motions intact. No scleral icterus. No injection or drainage. ENT: Nose without bleeding, purulent drainage or septal hematoma. Throat without erythema, tonsillar hypertrophy or exudate. Uvula midline. Airway patent. NECK: Trachea midline. Supple, nontender, no meningeal signs. CARDIOVASCULAR: Regular rate and rhythm without murmurs, gallops, or rubs. RESPIRATORY: Clear to auscultation. Breath sounds equal bilaterally. No wheezes , rales, or rhonchi. GASTROINTESTINAL: Abdomen soft, non-tender, nondistended. MUSCULOSKELETAL: Left elbow in dressing. Patient deferred examination today. NEUROLOGICAL: Awake and alert. Cranial nerves II through XII intact. Motor and sensory grossly within normal limits. Five out of 5 muscle strength in all muscle groups. Normal speech. Psych cooperative IV line sites of infection. Laboratory Laboratory Tests Test 08/30/17 08:31 White Blood Count 4.4 Red Blood Count 3.99 Hemoglobin 9.8 Hematocrit 30.2 Mean Corpuscular Volume 75.6 Mean Corpuscular Hemoglobin 24.6 Mean Corpuscular Hemoglobin Concent 32.5 Red Cell Distribution Width 13.3 Platelet Count 343 Mean Platelet Volume 6.9 Prothrombin Time 15.4 Prothromb Time International Ratio 1.5 Activated Partial Thromboplast Time 81.5 Date/Time Source Procedure Growth Status 08/23/17 19:05 Blood Peripheral Aerobic Blood Culture - Final NO GROWTH IN 5 DAYS Complete 08/23/17 19:05 Blood Peripheral Anaerobic Blood Culture - Final NO GROWTH IN 5 DAYS Complete 08/25/17 20:15 Abscess Elbow Fungal Smear - Final NO FUNGAL ELEMENTS SEEN. Resulted 08/25/17 20:15 Abscess Elbow Fungal Culture Pending Resulted Result Diagram: 08/30/17 0831 08/26/171945 Imaging Last Impressions Elbow MRI 08/24/17 0000 Signed Impressions: Service Date/Time: July 17:02 - CONCLUSION: Large olecranon bursitis. No osteomyelitis. Daniel Light MD Upper Extremity Ultrasound 08/23/17 0000 Signed Impressions: Service Date/Time: Wednesday, August 23, 2017 22:28 - CONCLUSION: Large subcutaneous fluid collection in the posterior elbow. Kaden Jain MD Assessment and Plan Assessment and Plan Right elbow bursitis. Serratia bursitis on first culture now with Gram variable rods likely due to partially being treated. Strep viridans bursitis. IV drug abuser Hepatitis C Failed outpatient oral antibiotics Recommendations: Continue ceftriaxone IV Will have to find an agent that would work for both Serratia as well as strep viridans deformity discharge regimen. Ceftriaxone IV would be reasonable choice but if possible would like to avoid IV antibiotics in view his history of drug abuse. Will discuss with patient's mom as well to see if she would help supervise treatment for Ms. Arzola. Patient now appears remorseful and promised not to abuse drugs in general but particularly not abuse PICC line upon discharge. Follow in a.m. to formulate a discharge plan. After discussion with Bruna Marquez MD Aug 30, 2017 14:35
[2017-08-30] MEDS: WARFARIN SOD 5 MG TAB PO SCH (16:03)
--- NOTE | 2017-08-30 16:04 | ECHRPT ---
Indication: SEPSIS ENDOCARDITIS CONCLUSIONS Normal left ventricular size. Wall thickness is normal. aortic, mitral and tricuspid valves appear normal in structure and function. The pulmonary valve is not well visualized. No evidence of valvular vegetations. BP: / HR: Rhythm: MEASUREMENTS (Male / Female) Normal Values Technical Quality:Good 2D ECHO LV Diastolic Diameter PLAX 4.4 cm 4.2 - 5.9 / 3.9 - 5.3 cm LV Systolic Diameter PLAX 3.1 cm IVS Diastolic Thickness 1.0 cm 0.6 - 1.0 / 0.6 - 0.9 cm LVPW Diastolic Thickness 0.7 cm 0.6 - 1.0 / 0.6 - 0.9 cm LV Relative Wall Thickness 0.4 LA Systolic Diameter LX 3.7 cm 3.0 - 4.0 / 2.7 - 3.8 cm M-MODE Aortic Root Diameter MM 3.0 cm AV Cusp Separation MM 1.8 cm DOPPLER Mitral E Point Velocity 114.0 cm/s Mitral A Point Velocity 90.5 cm/s Mitral E to A Ratio 1.3 TR Peak Velocity 243.0 cm/s TR Peak Gradient 23.6 mmHg FINDINGS LEFT VENTRICLE Normal left ventricular size. Wall thickness is normal. The left ventricular systolic function is normal with an estimated ejection fraction in the range of 60-65%. RIGHT VENTRICLE Normal right ventricular size and systolic function. LEFT ATRIUM The left atrial size is normal. RIGHT ATRIUM The right atrial size is normal. ATRIAL SEPTUM Normal atrial septal thickness without atrial level shunting by limited color doppler interrogation. AORTA The aortic root and proximal ascending aorta are normal in size on limited imaging. MITRAL VALVE Structurally normal mitral valve. No mitral valve stenosis or regurgitation. AORTIC VALVE Trileaflet aortic valve. No aortic valve stenosis or regurgitation. TRICUSPID VALVE Structurally normal tricuspid valve. No tricuspid valve stenosis or regurgitation. PULMONARY VALVE The pulmonary valve is not well visualized. VESSELS The inferior vena cava is normal in size. PERICARDIUM No pericardial effusion. Tab Gutierrez MD, FACC (Electronically Signed) Final Date:30 August 2017 16:03
[2017-08-31] VITALS (7 sets, daily range): BP systolic 117–134; BP diastolic 63–77; PULSE 64–79; RESP 16–20; TEMP 97.8–98.7; O2SAT 92–100
[2017-08-31] MEDS: HYDROmorphone HCL PF 2 MG/ML VIAL IV PUSH PRN ×6 (02:20→22:19)
[2017-08-31] MEDS: diphenhydrAMINE HCL 25 MG CAP PO PRN ×3 (02:20→22:20)
[2017-08-31] MEDS: SODIUM CHLOR 0.9% 1000 ML INJ 1,000 ML IV SCH ×2 (07:00→17:00)
[2017-08-31 07:45] LABS: INTERNATIONAL NORMALIZED RATIO 1.6 RATIO; PROTHROMBIN TIME - PATIENT 16.6 SEC (9.8-11.6)
[2017-08-31] MEDS: SODIUM CHLORIDE 0.9% FLUSH 10 ML FLUSH IV FLUSH SCH ×2 (08:34→22:20)
[2017-08-31] MEDS ORDERED: cefTRIAXone INJ 2,000 MG in SODIUM CHLORIDE 0.9% INJ 100 ML IV SCH (10:00)
[2017-08-31] MEDS: HEPARIN-D5W 25,000 U/250 ML 250 ML IV PRN (10:40)
--- NOTE | 2017-08-31 12:03 | HHI.PR ---
Subjective Remarks Follow-up right arm DVT/right elbow infection 08/29/17-patient seen and examined, complains of right elbow pain otherwise afebrile and also complains of right hand swelling 08/30/17-patient seen and examined, pain to right arm better controlled. Afebrile 08/31/17-patient seen and examined, no acute event overnight and currently afebrile. INR 1.6. Pain to right upper extremity improving. Patient complains of a pimple to her right arm Objective Vitals Vital Signs Date Time Temp Pulse Resp B/P (MAP) Pulse Ox O2 Delivery O2 Flow Rate FiO2 08/31/17 11:52 98.1 69 20 122/77 (92) 95 08/31/17 08:01 98.1 79 19 117/69 (85) 97 08/31/17 04:00 97.8 78 18 121/63 (82) 98 08/31/17 00:00 97.9 78 18 126/67 (86) 92 08/30/17 20:00 78 08/30/17 20:00 98.0 76 18 112/70 (84) 99 08/30/17 16:00 98.2 80 18 116/62 (80) 98 I/O 08/30/17 08/30/17 08/30/17 08/31/17 08/31/17 08/31/17 07:00 15:00 23:00 07:00 15:00 23:00 Output Total 1 ml Balance -1 ml Output Urine Total 1 ml # Voids 3 1 # Bowel Movements 1 0 Result Diagram: 08/30/17 0831 Objective Remarks GENERAL: NAD SKIN: Warm and dry. HEAD: Normocephalic. EYES: No scleral icterus. No injection or drainage. NECK: Supple, trachea midline. No JVD or lymphadenopathy. CARDIOVASCULAR: Regular rate and rhythm without murmurs, gallops, or rubs. RESPIRATORY: Breath sounds equal bilaterally. No accessory muscle use. GASTROINTESTINAL: Abdomen soft, non-tender, nondistended. MUSCULOSKELETAL: No cyanosis, or edema. dressing over right elbow BACK: Nontender without obvious deformity. No CVA tenderness. Procedures 08/25/17 irrigation and debridement of right elbow olecranon bursitis and deep abscess of right forearm A/P Problem List: (1) DVT of axillary vein, acute right ICD Code: I82.A11 - Acute embolism and thrombosis of right axillary vein (2) Arm DVT (deep venous thromboembolism), acute ICD Code: I82.629 - Acute embolism and thrombosis of deep veins of unspecified upper extremity (3) Bursitis of right elbow ICD Code: M70.31 - Other bursitis of elbow, right elbow Assessment and Plan 31 year-old female with 1. Right upper extremity cellulitis/abscess: Failed outpatient therapy. Wound culture from 08/19/17 growing Serratia, sensitive to Rocephin. Blood culture from 08/19/17 is negative. Repeat blood cultures are negative so far. Wound culture from 08/25/17 growing viridans streptococcus, sensitivities pending. Continue IV antibiotics and Infectious disease specialist consultation appreciated. Continue pain control. Status post irrigation and debridement. Appreciate orthopedic surgery recommendations. 2. IV drug abuse: Patient was counseled. 3. Hepatitis C: Follow-up as outpatient. 4. DVT, right upper extremity: Continue heparin drip bridging to therapeutic INR on Coumadin. Lionel Rios MD Aug 31, 2017 12:03
--- NOTE | 2017-08-31 14:08 | HHI.PR ---
Addendum to Inpatient Note Addendum Reason: Additional Documentation Additional Information Await ortiz palmer re: depth of infection to decide discharge regimen. Bruna Crawford MD Aug 31, 2017 14:08
[2017-08-31] MEDS ORDERED: EPIN1INJ21 SQ (14:58)
[2017-08-31] MEDS ORDERED: DALB1SOL IV (14:58)
[2017-08-31] MEDS ORDERED: SOLU250I IV PUSH (14:58)
[2017-08-31] MEDS ORDERED: EPIN1INJ21 IV PUSH (14:58)
[2017-08-31] MEDS ORDERED: LEVA500T33 PO (14:59)
--- NOTE | 2017-08-31 14:59 | HHI.IDPN ---
Subjective Subjective Remarks Ms. Gandhi is a 31-year-old female with past medical history significant for IV drug abuse, hepatitis C. presents to the emergency department for evaluation of right upper extremity cellulitis. The patient was seen in the emergency department on 08/19/17 for evaluation of a right forearm abscess which was self draining. She also had a developing cellulitis surrounding the right forearm. Wound cultures were taken and the patient was discharged to home with Bactrim and clindamycin. Wound culture positive for Serratia, sensitive to Bactrim. Despite compliance with her antibiotics the patient's left elbow cellulitis has spread almost to the axillary region. The area is warm to the touch with possible fluctuance. The patient is able to fully move her arm with minimal discomfort. She denies fever/chills. Denies fever or chills Denies blurry vision, otorrhea, rhinorrhea Denies sore throat and cough No chest pain, palpitations No shortness of breath or wheezing No abdominal pain Denies constipation/diarrhea/nausea/vomiting Denies muscle pain Denies focal weakness No rashes Infectious disease is consulted for evaluation and management of right elbow bursitis. Overnight events reviewed. No fever No rash No diarrhea Antibiotics Vanco IV Lines Line sites with no e.o infection Past Medical History reviewed Allergies: Coded Allergies: cat dander (Unverified Allergy, Intermediate, Hives, 08/22/17) house dust (Unverified Allergy, Mild, Sneezing, 08/22/17) animal dander (Unverified Allergy, Unknown, UNKNOWN, 08/22/17) Objective . Vital Signs Date Time Temp Pulse Resp B/P (MAP) Pulse Ox O2 Delivery O2 Flow Rate FiO2 08/31/17 11:52 98.1 69 20 122/77 (92) 95 08/31/17 08:01 98.1 79 19 117/69 (85) 97 08/31/17 04:00 97.8 78 18 121/63 (82) 98 08/31/17 00:00 97.9 78 18 126/67 (86) 92 08/30/17 20:00 78 08/30/17 20:00 98.0 76 18 112/70 (84) 99 08/30/17 16:00 98.2 80 18 116/62 (80) 98 08/31/17 08/31/17 09/01/17 15:00 23:00 07:00 # Voids 1 # Bowel Movements 0 . Laboratory Tests Test 08/30/17 08:31 White Blood Count 4.4 TH/MM3 Red Blood Count 3.99 MIL/MM3 Hemoglobin 9.8 GM/DL Hematocrit 30.2 % Mean Corpuscular Volume 75.6 FL Mean Corpuscular Hemoglobin 24.6 PG Mean Corpuscular Hemoglobin Concent 32.5 % Red Cell Distribution Width 13.3 % Platelet Count 343 TH/MM3 Mean Platelet Volume 6.9 FL Imaging Last Impressions Elbow MRI 08/24/17 0000 Signed Impressions: Service Date/Time: July 17:02 - CONCLUSION: Large olecranon bursitis. No osteomyelitis. Daniel Light MD Upper Extremity Ultrasound 08/23/17 0000 Signed Impressions: Service Date/Time: Wednesday, August 23, 2017 22:28 - CONCLUSION: Large subcutaneous fluid collection in the posterior elbow. Kaden Jain MD Physical Exam GENERAL: This is a well-nourished, well-developed patient, in no apparent distress. SKIN: No rashes, ecchymoses or lesions. Cool and dry. HEAD: Atraumatic. Normocephalic. No temporal or scalp tenderness. EYES: Pupils equal round and reactive. Extraocular motions intact. No scleral icterus. No injection or drainage. ENT: Nose without bleeding, purulent drainage or septal hematoma. Throat without erythema, tonsillar hypertrophy or exudate. Uvula midline. Airway patent. NECK: Trachea midline. Supple, nontender, no meningeal signs. CARDIOVASCULAR: Regular rate and rhythm without murmurs, gallops, or rubs. RESPIRATORY: Clear to auscultation. Breath sounds equal bilaterally. No wheezes , rales, or rhonchi. GASTROINTESTINAL: Abdomen soft, non-tender, nondistended. MUSCULOSKELETAL: Left elbow in dressing. Patient deferred examination today. NEUROLOGICAL: Awake and alert. Cranial nerves II through XII intact. Motor and sensory grossly within normal limits. Five out of 5 muscle strength in all muscle groups. Normal speech. Psych cooperative IV line sites of infection. Assessment & Plan Remarks Right elbow bursitis. Serratia bursitis on first culture now with Gram variable rods likely due to partially being treated. Strep viridans bursitis. IV drug abuser Hepatitis C Failed outpatient oral antibiotics Recommendations: Continue ceftriaxone IV while in hospital Will discharge patient on Dalvance after insurance company approval to be given in infusion clinic. Levaquin oral for Serratia 2 week script printed on floor. Would like to avoid IV antibiotics using PICC line in view his history of drug abuse. D/w Dr. Fowler abscess drained minimal bursitis as well in addition. Ok with Dalvance IV (d.w her long lasting effect of medication) gray.w Dr.Pontey ortiz Hammer. Will sign off please call back if any change in clinical condition or questions. Bruna Crawford MD Aug 31, 2017 14:59
--- NOTE | 2017-08-31 15:09 | HHI.FF ---
Infusion Therapy Location of Infusion Therapy: Ambulatory Infusion Therapy Order Patient Information Appointment Date: Aug 31, 2017 Patient Weight 99.4 kg Diagnosis: Diagnosis Abscess bursitis Strep Coded Allergies: cat dander (Unverified Allergy, Intermediate, Hives, 08/22/17) house dust (Unverified Allergy, Mild, Sneezing, 08/22/17) animal dander (Unverified Allergy, Unknown, UNKNOWN, 08/22/17) Administer Medication Dalbavancin 1500 mg IV one time dose. Start Treatment: Aug 31, 2017 Stop Treatment: Aug 31, 2017 Additional Information Venous access: Other (PIV) Additional Instructions [x] Peripheral flush and dressing changes per protocol [x] Implanted port and central personal lines agent: * Implanted port: 10 ml Normal Saline followed by 5 ml Heparin 100 units/ml Heparin flush after each use and monthly to maintain. [] May leave port accessed during therapy. [] May leave peripheral site accessed for duration of therapy. [x] If patient has SOB or respiratory distress, check oxygen saturation. If less than 90% or clinical signs of respiratory distress, administer oxygen at 2 L/min. via nasal cannula and notify physician. [x] Anaphylaxis/Reaction orders: * Stop infusion. * Keep IV line open with saline flush. * Notify physician. * Monitor vital signs every 15 minutes until symptoms resolve. * Check Oxygen saturation; Oxygen at 2 L/min. via nasal cannula if less than 90% or clinical signs of respiratory distress. * Administer diphenhydramine (Benadryl) 25 mg IV STAT, (unless patient has received as pre-med). May repeat once, if necessary. * Solu-Cortef 250 mg IVP over 30-60 seconds, use 100 mg vials for each dissolution. * Epinephrine (1mg/1 ml) 0.3 mg subcutaneously or IVP now with any signs of respiratory distress. * Check with physician for new additional pre-med orders if patient is re- challenged or re-treated. [x] May remove PICC line when treatment complete, after confirming with Physician. [x] If the patient is admitted to the hospital, the ED, or transferred via [facility] , complete transfer form including medication reconciliation order sheet. Laboratory Tests Additional Information Dalbavancin to be given in infusion clinic after pre-approval from company. Call with abnormals, change in clinical condition or problems to: Dr. Judith Crawford Bruna Crawford MD Aug 31, 2017 15:09
--- NOTE | 2017-08-31 15:14 | PD.OP ---
cc: Genevieve Fowler MD Operative Report Preoperative Diagnosis: (1) Bursitis of right elbow Postoperative Diagnosis: 1. Right elbow septic bursitis 2. Right forearm posterior deep abscess Procedure: Irrigation and debridement right elbow septic bursitis Incision and drainage right forearm posterior deep abscess Anesthesia: Gen. Surgeon: Genevieve Fowler Immunology Specialist(s): None Operation and Findings: EBL: 200 cc Complications: None Specimens: Cultures sent to microbiology Indications for procedure patient is a 31-year-old female with a history of IV drug use he was found to have a forearm abscess approximate 1 week prior to presentation and was treated nonoperatively with oral antibiotics. Patient returned to the ER with concern for increased swelling and pain in her right upper extremity. MRI revealed a posterior fluid collection about the right elbow and forearm. This extended from the right elbow bursa down to approximately proximal third of the forearm. Options of management were discussed with the patient including possible continued nonoperative care versus operative intervention. Given the size of the abscess and fluid collection, surgical intervention was recommended in the form of irrigation and debridement of her right elbow/forearm. Risks, benefits, alternatives were discussed with the patient. At this time she did consent to the procedure. Description of procedure: Patient was brought back to the operating room and placed supine on operating room table with all bony prominences well-padded. Gen. anesthesia then ensued. Patient was prepped and draped in standard sterile fashion. A timeout was performed with antibiotic correct patient, side , site and procedure to be performed. Preoperative antibiotic held with the intention of getting intraoperative cultures. At this time, a posterior based incision was made from directly over the olecranon bursa down to approximately 8 cm down the forearm posteriorly. Immediately upon incising the skin and subcutaneous tissue, gross purulence was encountered about the posterior forearm. This was cultured and sent to the lab. Patient was then given antibiotics at this time. Of note, the olecranon bursa did have some significant inflammation and cellulitis but no gross purulence was expressed from this bursa. The septations within the bursa were dissected and both the bursa and the posterior forearm abscess were thoroughly irrigated. These were curetted. These areas were thoroughly irrigated with 6 L of normal saline laden with gentamicin. At this point, the wounds appeared to be back to healthy bleeding tissue without evidence of infection. The subcutaneous tissue was then closed over a small Nena drain with PDS suture and the skin closed with nylon. Sterile dressings were then applied. Patient was then awoken from general anesthesia without complication. Disposition: Patient will be weightbearing as tolerated to the right upper extremity with encouraged range of motion. Patient will require antibiotics for her deep infection. Genevieve Fowler MD Aug 31, 2017 15:14
[2017-08-31] MEDS: WARFARIN SOD 5 MG TAB PO SCH (17:04)
[2017-09-01] VITALS (8 sets, daily range): BP systolic 125–150; BP diastolic 60–81; PULSE 68–89; RESP 16–20; TEMP 98.4–99.6; O2SAT 93–97
[2017-09-01] MEDS: HYDROmorphone HCL PF 2 MG/ML VIAL IV PUSH PRN ×6 (02:13→20:48)
[2017-09-01] MEDS: HEPARIN-D5W 25,000 U/250 ML 250 ML IV PRN ×2 (02:17→20:52)
[2017-09-01] MEDS: SODIUM CHLOR 0.9% 1000 ML INJ 1,000 ML IV SCH ×3 (03:00→23:00)
[2017-09-01 07:36] LABS: INTERNATIONAL NORMALIZED RATIO 1.7 RATIO; PROTHROMBIN TIME - PATIENT 16.8 SEC (9.8-11.6)
[2017-09-01] MEDS ORDERED: cefTRIAXone INJ 2,000 MG in SODIUM CHLORIDE 0.9% INJ 100 ML IV SCH ×2 (08:45→10:00)
[2017-09-01] MEDS: SODIUM CHLORIDE 0.9% FLUSH 10 ML FLUSH IV FLUSH SCH ×2 (09:22→20:53)
--- NOTE | 2017-09-01 09:27 | HHI.PR ---
Subjective Remarks Follow-up right arm DVT/right elbow infection 08/29/17-patient seen and examined, complains of right elbow pain otherwise afebrile and also complains of right hand swelling 08/30/17-patient seen and examined, pain to right arm better controlled. Afebrile 08/31/17-patient seen and examined, no acute event overnight and currently afebrile. INR 1.6. Pain to right upper extremity improving. Patient complains of a pimple to her right arm 09/01/17-patient seen and examined, complains of severe right hand throbbing pain. Patient denies receiving any medication from family members. INR 1.7 Objective Vitals Vital Signs Date Time Temp Pulse Resp B/P (MAP) Pulse Ox O2 Delivery O2 Flow Rate FiO2 09/01/17 08:28 16 09/01/17 08:00 99.1 74 17 150/76 (100) 97 09/01/17 05:45 98.6 75 17 125/60 (81) 96 09/01/17 00:30 98.8 68 16 133/78 (96) 97 08/31/17 20:40 98.0 64 16 130/65 (86) 98 08/31/17 19:49 71 08/31/17 16:26 98.7 72 20 134/69 (90) 100 08/31/17 11:52 98.1 69 20 122/77 (92) 95 I/O 08/31/17 08/31/17 08/31/17 09/01/17 09/01/17 09/01/17 07:00 15:00 23:00 07:00 15:00 23:00 Intake Total 250 ml 2170 ml 1622 ml Balance 250 ml 2170 ml 1622 ml Intake Oral 1170 ml 850 ml IV Total 250 ml 1000 ml 772 ml # Voids 1 4 4 # Bowel Movements 0 0 0 Result Diagram: 08/30/1731 Objective Remarks GENERAL: NAD SKIN: Warm and dry. HEAD: Normocephalic. EYES: No scleral icterus. No injection or drainage. NECK: Supple, trachea midline. No JVD or lymphadenopathy. CARDIOVASCULAR: Regular rate and rhythm without murmurs, gallops, or rubs. RESPIRATORY: Breath sounds equal bilaterally. No accessory muscle use. GASTROINTESTINAL: Abdomen soft, non-tender, nondistended. MUSCULOSKELETAL: No cyanosis, or edema. dressing over right elbow BACK: Nontender without obvious deformity. No CVA tenderness. Procedures 08/25/17 irrigation and debridement of right elbow olecranon bursitis and deep abscess of right forearm A/P Problem List: (1) DVT of axillary vein, acute right ICD Code: I82.A11 - Acute embolism and thrombosis of right axillary vein (2) Arm DVT (deep venous thromboembolism), acute ICD Code: I82.629 - Acute embolism and thrombosis of deep veins of unspecified upper extremity (3) Bursitis of right elbow ICD Code: M70.31 - Other bursitis of elbow, right elbow Assessment and Plan 31 year-old female with 1. Right upper extremity cellulitis/abscess: Failed outpatient therapy. Wound culture from 08/19/17 growing Serratia, sensitive to Rocephin. Blood culture from 08/19/17 is negative. Repeat blood cultures are negative so far. Wound culture from 08/25/17 growing viridans streptococcus, sensitivities pending. Continue IV antibiotics and Infectious disease specialist consultation appreciated. Likely will discharge home after one dose of Dalvance IV Continue pain control. Status post irrigation and debridement. Appreciate orthopedic surgery recommendations. 2. IV drug abuse: Patient was counseled. 2D echo without any evidence of valvular vegetation 3. Hepatitis C: Follow-up as outpatient. 4. DVT, right upper extremity: Continue heparin drip bridging to therapeutic INR on Coumadin. INR 1.7. Likely will discharge home on subcutaneous Lovenox bridge with Coumadin Lionel Rios MD Sep 01, 2017 09:27
[2017-09-01] MEDS ORDERED: COUM5TAB PO (13:52)
[2017-09-01] MEDS ORDERED: ENOX100P SQ (13:52)
--- NOTE | 2017-09-01 15:49 | HHI.DS ---
Discharge Summary Admission Date Aug 23, 2017 at 18:35 Discharge Date: Sep 01, 2017 Admitting Diagnosis cellulitis/infected wound right forearm failed outpatient therapy (1) DVT of axillary vein, acute right ICD Code: I82.A11 - Acute embolism and thrombosis of right axillary vein (2) Arm DVT (deep venous thromboembolism), acute ICD Code: I82.629 - Acute embolism and thrombosis of deep veins of unspecified upper extremity (3) Bursitis of right elbow ICD Code: M70.31 - Other bursitis of elbow, right elbow Procedures 08/25/17 irrigation and debridement of right elbow olecranon bursitis and deep abscess of right forearm Brief History - From Admission 31-year-old female with past medical history significant for IV drug abuse presents to the emergency department for evaluation of right upper extremity cellulitis. The patient was seen in the emergency department on 08/19/17 for evaluation of a right forearm abscess which was self draining. She also had a developing cellulitis surrounding the right forearm. Wound cultures were taken and the patient was discharged to home with Bactrim and clindamycin. Wound culture positive for Serratia, sensitive to Bactrim. Despite compliance with her antibiotics the patient's left elbow cellulitis has spread almost to the axillary region. The area is warm to the touch with possible fluctuance. The patient is able to fully move her arm with minimal discomfort. She denies fever /chills. CBC/BMP: 08/30/17 0831 Significant Findings Laboratory Tests Test 08/30/17 08:31 08/31/17 06:00 08/31/17 22:39 09/01/17 07:00 Red Blood Count 3.99 MIL/MM3 (4.00-5.30) Hemoglobin 9.8 GM/DL (11.6-15.3) Hematocrit 30.2 % (35.0-46.0) Mean Corpuscular Volume 75.6 FL (80.0-100.0) Mean Corpuscular Hemoglobin 24.6 PG (27.0-34.0) Mean Platelet Volume 6.9 FL (7.0-11.0) Prothrombin Time 15.4 SEC (9.8-11.6) 16.6 SEC (9.8-11.6) 16.8 SEC (9.8-11.6) Activated Partial Thromboplast Time 81.5 SEC (24.3-30.1) 88.9 SEC (24.3-30.1) 76.6 SEC (24.3-30.1) 67.6 SEC (24.3-30.1) PE at Discharge GENERAL: NAD SKIN: Warm and dry. HEAD: Normocephalic. EYES: No scleral icterus. No injection or drainage. NECK: Supple, trachea midline. No JVD or lymphadenopathy. CARDIOVASCULAR: Regular rate and rhythm without murmurs, gallops, or rubs. RESPIRATORY: Breath sounds equal bilaterally. No accessory muscle use. GASTROINTESTINAL: Abdomen soft, non-tender, nondistended. MUSCULOSKELETAL: No cyanosis, or edema. dressing over right elbow BACK: Nontender without obvious deformity. No CVA tenderness. Hospital Course 1. Right upper extremity cellulitis/abscess: Failed outpatient therapy. Wound culture from 08/19/17 growing Serratia, sensitive to Rocephin. Blood culture from 08/19/17 is negative. Repeat blood cultures are negative so far. Wound culture from 08/25/17 growing viridans streptococcus, sensitivities pending. Continue IV antibiotics and Infectious disease specialist consultation appreciated. Likely will discharge home after one dose of Dalvance IV Continue pain control. Status post irrigation and debridement. Appreciate orthopedic surgery recommendations. 2. IV drug abuse: Patient was counseled. 2D echo without any evidence of valvular vegetation 3. Hepatitis C: Follow-up as outpatient. 4. DVT, right upper extremity: Continue heparin drip bridging to therapeutic INR on Coumadin. INR 1.7. Likely will discharge home on subcutaneous Lovenox bridge with Coumadin Pt Condition on Discharge: Good Discharge Disposition: Discharge Home Discharge Time: <= 30 minutes Discharge Instructions DIET: Follow Instructions for: As Tolerated, No Restrictions Activities you can perform: Regular-No Restrictions Follow up Referrals: PCP Follow-up - 1 Week New Medications: Dalbavancin Inj (Dalvance Inj) 500 Mg Vial 1500 MG IV ONCE for abscess for 1 Day, #1 BAG 0 Refills Initial dose of two-dose regimen Enoxaparin Inj (Lovenox Inj) 100 Mg/Ml Syr 100 MG SQ BID for Blood Clot Prevention, #4 SYRINGE 0 Refills Epinephrine Inj (Epinephrine Inj) 1 Mg/Ml (1 Ml) Inj 0.3 MG IV PUSH ONCE PRN for ALLERGIC REACTION, #1 VIAL Epinephrine Inj (Epinephrine Inj) 1 Mg/Ml (1 Ml) Inj 0.3 MG SQ ONCE PRN for ALLERGIC REACTION, #1 VIAL Give with any signs of respiratory distress. Hydrocortisone Inj (Solu-Cortef Inj) 250 Mg/2 Ml Inj 250 MG IV PUSH ONCE PRN for ALLERGIC REACTION, #1 VIAL 0 Refills Give over 30-60 seconds. Levofloxacin (Levaquin) 500 Mg Tablet 500 MG PO DAILY for Infection for 14 Days, #14 TAB 0 Refills Warfarin (Coumadin) 5 Mg Tab 5 MG PO DAILY@1600 for Prevent Blood Clot, #30 TAB 2 Refills Continued Medications: Hydrocodone-Acetaminophen ([place]) 5 Mg-325 Mg Tab 1 TAB PO Q6H PRN for PAIN, #15 TAB 0 Refills Discontinued Medications: Cephalexin (Keflex) 500 Mg Cap 500 MG PO Q6, #40 0 Refills Cephalexin Monohydrate (Keflex 500 mg Cap) 500 Mg Cap 500 MG PO Q6 Clindamycin (Cleocin) 150 Mg Cap 150 MG PO Q6H for Infection for 10 Days, #40 CAP 0 Refills Sulfamethoxazole-Trimethoprim (Bactrim DS) 800-160 Mg Tab 1 TAB PO BID for Infection, #20 TAB 0 Refills Lionel Rios MD Sep 01, 2017 15:49
[2017-09-01] MEDS: diphenhydrAMINE HCL 25 MG CAP PO PRN ×2 (16:31→20:47)
[2017-09-01] MEDS: WARFARIN SOD 5 MG TAB PO SCH (16:32)
[2017-09-02] MEDS: HYDROmorphone HCL PF 2 MG/ML VIAL IV PUSH PRN ×3 (00:34→08:48)
[2017-09-02 00:57] VITALS: BP 125/70; PULSE 96; RESP 20; TEMP 99.6; O2SAT 97
[2017-09-02 03:42] VITALS: PULSE 100
[2017-09-02 05:35] LABS: HEMATOCRIT 32.7 % (35.0-46.0); HEMOGLOBIN 10.8 GM/DL (11.6-15.3); MEAN CELL VOLUME 74.6 FL (80.0-100.0); MEAN CORPUSCULAR HEMOGLOBIN 24.8 PG (27.0-34.0); MEAN CORPUSCULAR HGB CONC 33.2 % (32.0-36.0); PLATELET COUNT 361 TH/MM3 (150-450); RED BLOOD COUNT 4.38 MIL/MM3 (4.00-5.30); RED CELL DISTRIBUTION WIDTH 14.3 % (11.6-17.2); WHITE BLOOD COUNT 6.9 TH/MM3 (4.0-11.0)
[2017-09-02 05:50] LABS: INTERNATIONAL NORMALIZED RATIO 1.6 RATIO; PROTHROMBIN TIME - PATIENT 15.8 SEC (9.8-11.6)
[2017-09-02 06:00] VITALS: BP 115/74; PULSE 87; RESP 20; TEMP 97.6; O2SAT 96
[2017-09-02 08:00] VITALS: BP 140/88; PULSE 98; RESP 17; TEMP 98.5; O2SAT 98
== END 2017-09-02 09:26 | disposition home or self-care (01) | DRG 501 ==
LOC: NEPC 17:29 → NEDA 18:35 → NEPHCDU 20:05 → N05B 08-25 20:42 → N05A 08-25 22:07
PROVIDERS: ADMIT Hospitalist; ATTEND Hospitalist
PROC: 0MB30ZZ Excision of Right Elbow Bursa and Ligament, Open Approach (ICD-10-PCS; 2017-08-25)
PROC: 0J9G0ZZ Drainage of Right Lower Arm Subcutaneous Tissue and Fascia, Open Approach (ICD-10-PCS; principal; 2017-08-25 19:56)
DX: M71.121 Other infective bursitis, right elbow (principal); L03.113 Cellulitis of right upper limb; I82.621 Acute embolism and thrombosis of deep veins of right upper extremity; L02.413 Cutaneous abscess of right upper limb; M41.9 Scoliosis, unspecified; B19.20 Unspecified viral hepatitis C without hepatic coma; F19.10 Other psychoactive substance abuse, uncomplicated; Z23 Encounter for immunization; B95.4 Other streptococcus as the cause of diseases classified elsewhere; L29.9 Pruritus, unspecified; R21 Rash and other nonspecific skin eruption
CPT/HCPCS: 73223; 76882; 76937; 80048; 80053; 80202; 83605; 84702; 85025; 85027; 85610; 85652; 85730; 86140; 87015; 87040; 87070; 87102; 87116; 87205; 87206; 90686; 90732; 93306; 93971; A9579; J0696; J1170; J1644; J2175; J2270; J2405; J2543; J3010; J3370; J7030; Q2038

== ENCOUNTER → 2017-09-02 | Outpatient (CLI) | payer SELFPAY ==
[~2017-09-02] VITALS: Ht 165.1 cm; Wt 102.3 kg
[~2017-09-02] MED LIST changes: -BACT800T5 PO; -CEPH500 PO; -CEPH500C3 PO; -CLIN150 PO; +COUM5TAB PO; +DALB1SOL IV; +DALBAVANCIN 1,500 MG/D5W 500 ML IV ONE; +ENOX100P SQ; +EPIN1INJ21 IV PUSH; +EPIN1INJ21 SQ; +LEVA500T33 PO; +SODIUM CHLORIDE 0.9% FLUSH 10 ML FLUSH IV FLUSH ONE; +SOLU250I IV PUSH; +[UNRECOGNIZED DRUG - CODE] TOPICAL
[2017-09-02 09:50] VITALS: BP 133/77; PULSE 91; RESP 16; TEMP 98.8
== END ==
LOC: CIVT 09:28
PROVIDERS: ATTEND Hospitalist
DX: M71.0 Abscess of bursa (principal); B95.5 Unspecified streptococcus as the cause of diseases classified elsewhere
CPT/HCPCS: 96365; J0875; J7060

== ENCOUNTER 2017-09-09 08:58 | Emergency (ER) | payer SELFPAY ==
[~2017-09-09] VITALS: Ht 165.1 cm; Wt 91.0 kg
[~2017-09-09 08:58] MED LIST changes: -DALBAVANCIN 1,500 MG/D5W 500 ML IV ONE; -EPIN1INJ21 IV PUSH; -EPIN1INJ21 SQ; -SODIUM CHLORIDE 0.9% FLUSH 10 ML FLUSH IV FLUSH ONE; -SOLU250I IV PUSH; -[UNRECOGNIZED DRUG - CODE] TOPICAL
[2017-09-09 09:01] VITALS: BP 125/78; PULSE 96; RESP 14; TEMP 98.8; O2SAT 100
[2017-09-09] MEDS ORDERED: [UNRECOGNIZED DRUG - CODE] TOPICAL (09:23)
--- NOTE | 2017-09-09 09:23 | PD ---
HPI Chief Complaint: Wound/Suture/Staple Re-Check Time Seen by Provider: 09:07 Travel History International Travel<30 days: No Contact w/Intl Traveler<30days: No Traveled to known affect area: No History of Present Illness HPI This is a 32-year-old female who presents to the emergency department having had a right forearm abscess and septic bursitis incised and drained by Dr. Fowler on August 31 coming in today for suture removal. Patient reports that she followed up with wound care once but has not followed up with her surgeon. She says that she is having a significant amount of oozing from the proximal aspect of the wound with some swelling, constant, moderate severity with no fevers or chills. She has been taking her oral antibiotics and she has been taking warfarin because she had an associated upper extremity DVT. PFSH Past Medical History Blood Disorders: No Cancer: No Cardiovascular Problems: No Diminished Hearing: No Endocrine: No Genitourinary: No Hepatitis: Yes (C) Immune Disorder: No Musculoskeletal: Yes (tendoitis knees, herniated disk in back,scoliosis) Neurologic: No Psychiatric: No Reproductive: No Respiratory: No (PNUEMONIA) Immunizations Current: Yes ?: Not : 0 Past Surgical History Tonsillectomy: Yes Social History Alcohol Use: Yes Tobacco Use: No Substance Use: Yes (IVDU) Allergies-Medications (Allergen,Severity, Reaction): Coded Allergies: cat dander (Unverified Allergy, Intermediate, Hives, 09/02/17) house dust (Unverified Allergy, Mild, Sneezing, 09/02/17) animal dander (Unverified Allergy, Unknown, UNKNOWN, 09/02/17) Reported Meds & Prescriptions Reported Meds & Active Scripts Active Lovenox Inj (Enoxaparin Sodium) 100 Mg/Ml Syr 100 Mg SQ BID Coumadin (Warfarin) 5 Mg Tab 5 Mg PO DAILY@1600 Levaquin (Levofloxacin) 500 Mg Tablet 500 Mg PO DAILY 14 Days Dalvance Inj (Dalbavancin) 500 Mg Vial 1,500 Mg IV ONCE 1 Days Initial dose of two-dose regimen [place] (Hydrocodone-Acetaminophen) 5 Mg-325 Mg Tab 1 Tab PO Q6H PRN Review of Systems General / Constitutional: No: Fever, Chills Gastrointestinal: No: Nausea, Vomiting Physical Exam Narrative GENERAL: Well-appearing, no acute distress, nontoxic SKIN: 8 cm incision down the posterior forearm with nylon sutures in place, proximal aspect of the wound is oozing dark blood and appears moist. Distal aspect of the wound appears dry. No surrounding erythema or induration. HEAD: Atraumatic. Normocephalic. ENT: No nasal bleeding or discharge. Moist mucous membranes MUSCULOSKELETAL: No obvious deformities. No clubbing. No cyanosis. No edema. NEUROLOGICAL: Awake and alert. No obvious cranial nerve deficits. Motor grossly within normal limits. Normal speech. PSYCHIATRIC: Appropriate mood and affect; insight and judgment normal. Data Data Last Documented VS Vital Signs Date Time Temp Pulse Resp B/P (MAP) Pulse Ox O2 Delivery O2 Flow Rate FiO2 09/09/17 09:01 98.8 96 14 125/78 (94) 100 MDM Medical Decision Making Medical Screen Exam Complete: Yes Emergency Medical Condition: Yes Differential Diagnosis Wound infection, normal wound healing, poorly healing wound Narrative Course This is a 32-year-old female who presents to the emergency department for evaluation of postsurgical wound. She has an incision on her right forearm which is partially healed but continues to ooze and appear moist in certain areas. I do not think the sutures are ready to come out at this time. She was advised on continued wound care and asked to follow-up with Dr. Fowler in clinic within the week. A mandatory referral was placed. Diagnosis Primary Impression: Delayed surgical wound healing Qualified Codes: T81.89XA - Other complications of procedures, not elsewhere classified, initial encounter Referrals: Genevieve Fowler MD Patient Instructions: General Instructions Additional Instructions: If you develop fever, increasing redness, warmth, or spreading of your infection , or severe pain return to the emergency department immediately as you may require antibiotics through your IV. Complete your course of antibiotics as prescribed. Follow up with Dr. Fowler as soon as possible. Med/Other Pt SpecificInfo: Prescription(s) given Scripts Bacitracin (Topical) (Tgt Bacitracin) 500 Unit/Gram Oin 1 APPLIC TOPICAL BID, #1 TUBE Prov: Roxane Woodward MD 09/09/17 Disposition: 01 DISCHARGE HOME Condition: Stable Roxane Woodward MD Sep 09, 2017 09:23
== END 2017-09-09 09:54 | disposition home or self-care (01) ==
LOC: NEPD 08:58
DX: T81.89XD Other complications of procedures, not elsewhere classified, subsequent encounter (principal); X58.XXXD Exposure to other specified factors, subsequent encounter
CPT/HCPCS: 99281

== ENCOUNTER 2017-09-25 17:04 | Emergency (ER) | payer SELFPAY ==
[~2017-09-25 17:04] MED LIST changes: -ENOX100P SQ; -NORC5TAB PO; +[UNRECOGNIZED DRUG - CODE] TOPICAL
[2017-09-25 17:10] VITALS: BP 164/89; PULSE 82; RESP 16; TEMP 99.2; O2SAT 99
--- NOTE | 2017-09-25 17:37 | RADRPT ---
EXAM DATE/TIME: 09/25/2017 17:23 [facility] COMPARISON: MRI ELBOW RIGHT W & W/O CONTRAST, August 24, 2017, 17:02. INDICATIONS : Painful protrustion near olecranon post forearm surgery. MEDICAL HISTORY : Hepatitis C. IV drug use. SURGICAL HISTORY : Tonsillectomy. Spinal surgery. I&D of right forearm wound. ENCOUNTER: Initial ACUITY: 4 - 6 days PAIN SCORE: 6/10 LOCATION: Right elbow, olecranon FINDINGS: AP and lateral views of the right elbow demonstrate no fracture or dislocation. Mineralization is nor mal. No joint effusion is identified. The posterior elbow and distal posterior forearm soft tissue sw elling has decreased. However, there is some residual soft tissue swelling present. There is an overl marco bandage in place. No radiopaque foreign body is seen. CONCLUSION: Decreased but mild residual posterior proximal forearm and elbow soft tissue swelling. There is no ra diopaque foreign body or acute osseous abnormality identified. Daniel Plaza MD on September 25, 2017 at 17:34 Board Certified Radiologist. This report was verified electronically.
--- NOTE | 2017-09-25 18:04 | PD ---
HPI Chief Complaint: Injury Time Seen by Provider: 17:50 Travel History International Travel<30 days: No Contact w/Intl Traveler<30days: No Traveled to known affect area: No History of Present Illness HPI 32-year-old female presents for wound recheck. The patient underwent irrigation and debridement of right elbow septic bursitis and incision and drainage right forearm posterior deep abscess during an admission in July. She is currently following with the wound care clinic as well as her orthopedic surgeon Dr. Fowler. She had the nylon cutaneous sutures removed 4 days ago at the wound care clinic. She presents today because she noticed a small white area of irritation at the site of the wound. Denies fevers, chills, abnormal drainage. No other complaints. PFSH Past Medical History Blood Disorders: No Cancer: No Cardiovascular Problems: No Diminished Hearing: No Endocrine: No Gastrointestinal Disorders: No Genitourinary: No Hepatitis: Yes (C) Immune Disorder: No Implanted Vascular Access Dvce: No Musculoskeletal: Yes (tendoitis knees, herniated disk in back,scoliosis) Neurologic: No Psychiatric: No Reproductive: No Respiratory: No (PNUEMONIA) Immunizations Current: Yes ?: Not LMP: 09/18/2017 : 0 Past Surgical History Tonsillectomy: Yes Other Surgery: Yes (TONSILS) Social History Alcohol Use: Yes Tobacco Use: No Substance Use: Yes (IVDU) Allergies-Medications (Allergen,Severity, Reaction): Coded Allergies: cat dander (Unverified Allergy, Intermediate, Hives, 09/02/17) vancomycin (Verified Allergy, Intermediate, 09/09/17) house dust (Unverified Allergy, Mild, Sneezing, 09/02/17) animal dander (Unverified Allergy, Unknown, UNKNOWN, 09/02/17) Reported Meds & Prescriptions Reported Meds & Active Scripts Active Tgt Bacitracin (Bacitracin (Topical)) 500 Unit/Gram Oin 1 Applic TOPICAL BID Coumadin (Warfarin) 5 Mg Tab 5 Mg PO DAILY@1600 Levaquin (Levofloxacin) 500 Mg Tablet 500 Mg PO DAILY 14 Days Dalvance Inj (Dalbavancin) 500 Mg Vial 1,500 Mg IV ONCE 1 Days Initial dose of two-dose regimen Review of Systems General / Constitutional: No: Fever, Chills Skin: Positive Other (skin irritation at the site of her surgical wound) Physical Exam Narrative GENERAL: Well-nourished female in no acute distress SKIN: Warm and dry. Examination of the right forearm reveals well-healing surgical wound, area of wound dehiscence which is healing well with secondary intention. There is a singular small white suture that is poking through her surgical scar which appears to be PDS absorbable suture per her operative report notes. Data Data Last Documented VS Vital Signs Date Time Temp Pulse Resp B/P (MAP) Pulse Ox O2 Delivery O2 Flow Rate FiO2 09/25/17 17:10 99.2 82 16 164/89 (114) 99 Orders Orders Elbow, Limited (Ap&Lat) (09/25/17 ) MDM Medical Decision Making Medical Screen Exam Complete: Yes Emergency Medical Condition: Yes Medical Record Reviewed: Yes Differential Diagnosis Suture removal, wound dehiscence, scar tissue formation Narrative Course It appears that one of the absorbable sutures were used during her surgery is currently poking through the skin and causing irritation. This was cut down to the level of the skin with scissors. The patient is stable for discharge. Diagnosis Primary Impression: Encounter for wound re-check Additional Instructions: Follow-up with your surgeon in the wound care clinic. Return for any emergent medical conditions. Med/Other Pt SpecificInfo: Wound Care Disposition: 01 DISCHARGE HOME Condition: Stable Modesto Lopez Sep 25, 2017 18:03
== END 2017-09-25 18:22 | disposition home or self-care (01) ==
LOC: NEPK 17:04
DX: Z48.01 Encounter for change or removal of surgical wound dressing (principal)
CPT/HCPCS: 73070; 99283

== ENCOUNTER 2017-12-21 17:00 | Emergency (ER) | payer OTHER ==
[~2017-12-21] VITALS: Ht 162.6 cm; Wt 100.0 kg
[2017-12-21 17:04] VITALS: BP 147/85; PULSE 99; RESP 18; TEMP 97.7; O2SAT 99
[2017-12-21] MEDS ORDERED: DALBAVANCIN INJ 1,500 MG in DEXTROSE 5% IN WATE 500 ML INJ 500 ML IV STA ×2 (17:42)
[2017-12-21] MEDS ORDERED: ASP: Location of Dalbavancin administration OTHER ONE (17:45)
[2017-12-21] MEDS ORDERED: PHARMACY INFORMATION XX ONE (17:45)
[2017-12-21] MEDS ORDERED: ASP: Does not meet inpatient admission criteria OTHER ONE (17:45)
[2017-12-21] MEDS ORDERED: ASP: No known hypersensitivity to Vanco, Telavancin, Dalbavancin OTHER ONE (17:45)
--- NOTE | 2017-12-21 17:53 | PD ---
HPI Chief Complaint: Skin Problem Time Seen by Provider: 17:41 Travel History International Travel<30 days: No Contact w/Intl Traveler<30days: No Traveled to known affect area: No History of Present Illness HPI 32-year-old female with history of IV drug use, presents emergency department with pain and swelling to the dorsal left hand, after admittedly using IV drugs last evening. She states it was fine when she went to bed but has blown up overnight. She has tenderness, swelling, and erythema. There is no significant streaking. She denies fever, chills, or other symptoms. Patient is allergic to animal dander, house dust, and vancomycin, however she has had dowel dance in the past without issue. PFSH Past Medical History Blood Disorders: No Cancer: No Cardiovascular Problems: No Diminished Hearing: No Endocrine: No Gastrointestinal Disorders: No Genitourinary: No Hepatitis: Yes (C) Immune Disorder: No Implanted Vascular Access Dvce: No Musculoskeletal: Yes (tendoitis knees, herniated disk in back,scoliosis) Neurologic: No Psychiatric: No Reproductive: No Respiratory: No (PNUEMONIA) Immunizations Current: Yes ?: Not : 0 Past Surgical History Tonsillectomy: Yes Other Surgery: Yes (TONSILS) Social History Alcohol Use: Yes Tobacco Use: No Substance Use: Yes (IVDU) Allergies-Medications (Allergen,Severity, Reaction): Coded Allergies: cat dander (Unverified Allergy, Intermediate, Hives, 09/02/17) vancomycin (Verified Allergy, Intermediate, 09/09/17) house dust (Unverified Allergy, Mild, Sneezing, 09/02/17) animal dander (Unverified Allergy, Unknown, UNKNOWN, 09/02/17) Reported Meds & Prescriptions Reported Meds & Active Scripts Active Tgt Bacitracin (Bacitracin (Topical)) 500 Unit/Gram Oin 1 Applic TOPICAL BID Coumadin (Warfarin) 5 Mg Tab 5 Mg PO DAILY@1600 Levaquin (Levofloxacin) 500 Mg Tablet 500 Mg PO DAILY 14 Days Dalvance Inj (Dalbavancin) 500 Mg Vial 1,500 Mg IV ONCE 1 Days Initial dose of two-dose regimen Review of Systems Except as stated in HPI: all other systems reviewed are Neg General / Constitutional: No: Fever Eyes: No: Visual changes HENT: No: Headaches Cardiovascular: No: Chest Pain or Discomfort Respiratory: No: Shortness of Breath Gastrointestinal: No: Abdominal Pain Genitourinary: No: Dysuria Musculoskeletal: No: Pain Skin: Positive Lesions (See history of present illness per), No Rash Neurologic: No: Weakness Psychiatric: No: Depression Endocrine: No: Polydipsia Hematologic/Lymphatic: No: Easy Bruising Physical Exam Narrative GENERAL: Patient is a good spirits and in no acute distress. SKIN: Warm and dry. Normal color. Normal turgor. Patient has raised indurated tender erythematous warm area over the dorsal left hand without obvious signs of abscess currently. There is no pointing. There is no streaking up the forearm HEAD: Atraumatic. Normocephalic. EYES: Pupils equal and round. No scleral icterus. No injection or drainage. ENT: No nasal bleeding or discharge. Mucous membranes pink and moist. Pharynx is clear. Airways patent. NECK: Trachea midline. Supple and nontender. CARDIOVASCULAR: Regular rate and rhythm. No murmurs gallops or rubs appreciated RESPIRATORY: No accessory muscle use. Clear to auscultation. Breath sounds equal bilaterally. GASTROINTESTINAL: Abdomen soft, non-tender, nondistended. Hepatic and splenic margins not palpable. MUSCULOSKELETAL: Extremities without clubbing, cyanosis, or edema. No obvious deformities. NEUROLOGICAL: Awake and alert. No obvious cranial nerve deficits. Motor grossly within normal limits. Five out of 5 muscle strength in the arms and legs. Normal speech. PSYCHIATRIC: Appropriate mood and affect; insight and judgment normal. Data Data Last Documented VS Vital Signs Date Time Temp Pulse Resp B/P (MAP) Pulse Ox O2 Delivery O2 Flow Rate FiO2 12/21/17 17:04 97.7 99 18 147/85 (105) 99 Orders Orders Complete Blood Count With Diff (12/21/17 17:42) Comprehensive Metabolic Panel (12/21/17 17:42) Blood Culture (12/21/17 17:42) Consult Infectious Disease (12/21/17 ) Case Management Consult (12/21/17 ) Asp:No Reaction To Dalbav/Vanc (Asp Crit (12/21/17 17:45) Asp: Does Not Meet Inpt Admit (Asp Crit: (12/21/17 17:45) Asp: Location Of Dalbav Admin (Asp Crit: (12/21/17 17:45) Pharm[place] Information [place] [place] [facility] [place] (12/21/17 17:45) Dalbavancin Inj (Dalvance Inj) (12/21/17 17:42) [facility] Medical Decision Making Medical Screen Exam Complete: Yes Emergency Medical Condition: Yes Medical Record Reviewed: Yes Differential Diagnosis History of IV drug use. Cellulitis. Early abscess. Narrative Course Patient is medically stable at time of exam. Dalvance 1500 mg IV is ordered for the patient with associated labs including CBC, CMP, and blood cultures 2. Patient can take Tylenol ibuprofen and use hot packs as needed. Patient is to return to emergency department if symptoms worsen as discussed. Diagnosis Primary Impression: Cellulitis of left hand excluding fingers and thumb Additional Impression: IV drug user Referrals: [facility] Patient Instructions: Cellulitis (ED), General Instructions Additional Instructions: Patient is medically stable at time of exam. Dalvance 1500 mg IV is ordered for the patient with associated labs including CBC, CMP, and blood cultures 2. Patient can take Tylenol ibuprofen and use hot packs as needed. Patient is to return to emergency department if symptoms worsen as discussed. Disposition: 01 DISCHARGE HOME Condition: Stable Esau Almaraz December 21, 2017 17:53
[2017-12-21 19:36] LABS: AUTOMATED NEUTROPHIL # 2.4 TH/MM3 (1.8-7.7); BASOPHIL % 0.4 % (0.0-2.0); EOSINOPHIL # 0.1 TH/MM3 (0-0.4); HEMATOCRIT 37.9 % (35.0-46.0); LYMPH % 43.4 % (9.0-44.0); LYMPHOCYTE # 2.2 TH/MM3 (1.0-4.8); MEAN CELL VOLUME 72.1 FL (80.0-100.0); MEAN CORPUSCULAR HEMOGLOBIN 22.7 PG (27.0-34.0); MEAN CORPUSCULAR HGB CONC 31.5 % (32.0-36.0); MEAN PLATELET VOLUME 7.3 FL (7.0-11.0); MONOCYTE # 0.4 TH/MM3 (0-0.9); NEUT % 48.2 % (16.0-70.0); PLATELET COUNT 266 TH/MM3 (150-450); RED BLOOD COUNT 5.26 MIL/MM3 (4.00-5.30); RED CELL DISTRIBUTION WIDTH 14.6 % (11.6-17.2)
[2017-12-21 19:55] LABS: ALBUMIN 3.3 GM/DL (3.4-5.0); AST (GOT) 21 U/L (15-37); BICARBONATE 26.8 MEQ/L (21.0-32.0); CALCIUM 8.7 MG/DL (8.5-10.1); CHLORIDE 103 MEQ/L (98-107); CREATININE 0.87 MG/DL (0.50-1.00); GLOMERULAR FILTRATION RATE 76 ML/MIN (>89); GLUCOSE,RANDOM 117 MG/DL (74-106); SODIUM (NA) 139 MEQ/L (136-145)
[2017-12-21 19:56] LABS: ALT (GPT) 21 U/L (10-53)
[2017-12-21 19:58] LABS: ALKALINE PHOSPHATASE 121 U/L (45-117); TOTAL BILIRUBIN ADULT 0.9 MG/DL (0.2-1.0); TOTAL PROTEIN 8.7 GM/DL (6.4-8.2)
[2017-12-21 19:59] LABS: BLOOD UREA NITROGEN 11 MG/DL (7-18)
[2017-12-21 20:49] VITALS: BP 117/68; PULSE 83; RESP 20; O2SAT 98
== END 2017-12-21 22:01 | disposition home or self-care (01) ==
LOC: NEPD 17:00
DX: L03.114 Cellulitis of left upper limb (principal); F19.90 Other psychoactive substance use, unspecified, uncomplicated; Z88.1 Allergy status to other antibiotic agents
CPT/HCPCS: 80053; 85025; 87040; 96360; 96361; 99284; J0875; J7060